=== PATIENT | male | born 1940 | race Caucasian/White ===

== ENCOUNTER 2018-10-10 08:56 | Day surgery (SDC) | payer OTHER, SELFPAY ==
[2018-10-10] VITALS (9 sets, daily range): BP systolic 92–128; BP diastolic 64–74; PULSE 79–87; RESP 8–18; TEMP 36.2–36.6; O2SAT 94–99; BMI 27.6
--- NOTE | 2018-10-10 | PATH_ITS ---
[facility] Accession Number: [id number] . 01 Material submitted: . ASCENDING COLON POLYP . 02 Diagnosis: Ascending Colon, Polyp: Colonic mucosa with no diagnostic abnormality, consistent with polypoid redundancy. Negative for serrated lesion, dysplasia or malignancy. Additional step sections examined. V/10/13/2018 . 02 Electronically signed: . Pacheco Bradford MD, PhD, Pathologist NPI- [id number] . 01 Gross description: . ASCENDING COLON POLYP: Received in formalin are 2 fragment(s) of bro, soft tissue measuring 0.5 x 0.2 x 0.1 cm to 0.2 x 0.2 x 0.1 cm submitted entirely in 1 cassette(s) /CKI /CKI . 02 Pathologist provided ICD-10: K63.5 . 02 CPT . 674000 Performed at: 01 [facility] [address] [facility] [place], [place], [place] [id number] MD Evan Woods MD Phone: [phone] Performed at: 02 [facility] [address] [place], [place] [id number] MD Kaycee Paulino MD Phone: [phone]
[2018-10-10] MEDS: SODIUM CHLORIDE 0.9% 1,000 ML 200 ML IV (09:23)
--- NOTE | 2018-10-10 10:51 | PM.HP.1 ---
History of Present Illness Date Patient Seen: 10/10/18 Time Patient Seen: 10:51 Chief complaint: colonoscopy [address]108 Narrative: The patient is a gentleman here for a screening colonoscopy. He was advised to have a repeat colonoscopy due to polyps. his last exam was about 3 years ago. Patient History Medical History Hypertension (Chronic) Surgical History Status post cataract extraction (Resolved) Family & Social History Social History: household members significant other Meds Home Medications Medication Instructions Recorded Confirmed Type aspirin 325 mg DAILY 10/10/18 10/10/18 History atorvastatin 20 mg DAILY 10/10/18 10/10/18 History metoprolol succinate 25 mg DAILY 10/10/18 10/10/18 History multivitamin 2 tab DAILY 10/10/18 10/10/18 History Allergies Allergy/AdvReac Type Severity Reaction Status Date / Time No Known Drug Allergies Allergy Verified 10/10/18 09:32 Review of Systems Review of Systems All systems reviewed & are unremarkable except as noted in HPI and below Cardiovascular Comments: History of paroxysmal atrial tachycardia and mitral valvular murmur Exam Vital Signs (past 8 hours): - 10/10/18 09:13 Temperature 97.2 F L Pulse Rate 84 Respiratory Rate 15 Blood Pressure 128/74 Pulse Oximetry 97 Oxygen Delivery Method Room Air Narrative Exam Narrative: Operative no apparent distress. Lungs are clear no rales or rhonchi heart regular rate and rhythm without murmur gallop. Abdomen is protuberant soft nontender without mass. Patient is alert and oriented x3. Assessment & Plan Plan: Assessment/Plan Narrative: Patient for screening exam. He apparently makes polyps rather quickly. He has had multiple exams in each time polyps were found. I have discussed the procedure and the rationale with the patient including risks of bleeding, perforation which would necessitate a major operation, failure to find remove all lesions and the potential to tattoo. They appeared to understand and wished to proceed.
--- NOTE | 2018-10-10 10:57 | PM.PREOP ---
Pre-operative Note Interval Note History & Physical reviewed/Exam performed by Physician: Yes Changes to H&P: No ASA Class (for procedural sedation): II
[2018-10-10] MEDS: fentaNYL 250 MCG/5 ML INJ IV (11:09)
[2018-10-10] MEDS: MIDAZOLAM 5 MG/5 ML VIAL IV (11:09)
--- NOTE | 2018-10-10 11:25 | PM.OP.ENDO ---
Operative Date/Time/Diagnoses Date of procedure: 10/10/18 Time of procedure: 11:25 Pre-op diagnosis: Screening exam. History of polyps. Post-op diagnosis: same (Sigmoid diverticulosis extensive. One small lesion in the ascending colon may just be scar.) Procedure & Clinicians Study performed: Colonoscopy with cold biopsy Same procedure as scheduled: Yes Indications: Screening. History of polyps. Surgeon: Jeffrey Roberts Procedure Notes SCOAP/Timeout: Performed Procedure in detail: The patient was placed in the left lateral decubitus position and underwent IV sedation directed by the surgeon consisting of fentanyl and Versed. Digital exam was unremarkable. No mass felt in the prostate. The prostate was mildly enlarged.. The scope was inserted and advanced through the rectum into the sigmoid, descending, transverse, and ascending colon. The patient was noted to have extensive sigmoid diverticulosis.. The cecum was reached identified by the ileocecal valve and the appendiceal opening. The scope was gradually brought out. A flat lesion that was small was found in the ascending colon. It could have been scar from a prior procedure. Biopsies were taken of it. It appeared to be removed.. The scope ultimately was retroflexed in the rectum. The appearance was normal. The scope was removed and the patient tolerated the procedure well Scope withdrawal time: Twelve min Sedation minutes: 25 Findings: diverticulosis (Sigmoid) and other findings (Flat lesion ascending colon) Specimen(s): other (Flat lesion) Complications: none Recommendations: Colonscopy in 5 years Follow up: as needed Disposition: same day surgery
== END 2018-10-10 12:34 | disposition home or self-care (01) ==
PROVIDERS: Family Provider Internal Medicine; PCP Internal Medicine; Visit Provider Specialist
PROC: 0DJD8ZZ Inspection of Lower Intestinal Tract, Via Natural or Artificial Opening Endoscopic (ICD-10-PCS; CPT 45378; principal; 2018-10-10 10:45)
DX: Z86.010 Personal history of colon polyps (principal); K57.30 Diverticulosis of large intestine without perforation or abscess without bleeding; I10 Essential (primary) hypertension; K63.5 Polyp of colon
CPT/HCPCS: 45380; 88305; 99152; 99153; J2250; J3010

== ENCOUNTER → 2019-07-15 08:43 | Outpatient (CLI) | payer OTHER, SELFPAY ==
[2019-07-15 09:58] LABS: Alanine Aminotransferase 24 IU/L (21-72); Albumin 4.3 g/dL (3.5-5.0); Albumin Globulin Ratio 1.5 (1.0-2.8); Alkaline Phosphatase 52 U/L (38-126); Aspartate Aminotransferase 42 IU/L (17-59); Blood Urea Nitrogen 18 mg/dL (9-20); Calcium 9.7 mg/dL (8.4-10.2); Carbon Dioxide 28 mmol/L (22-32); Chloride 104 mmol/L (98-107); Cholesterol 140 mg/dL (140-199); Estimated Glomerular Filt Rate 58.7 mL/min (>60); Globulin 2.9 g/dL (1.7-4.1); Glucose 129 mg/dL (80-110); HDL Cholesterol 37 mg/dL (40-60); HEMOLYSIS < 15 (0-50); LDL Cholesterol Calculated 88 mg/dL (<100); Potassium 4.2 mmol/L (3.4-5.1); Sodium 140 mmol/L (137-145); Total Protein 7.2 g/dL (6.3-8.2); Triglycerides 77 mg/dL (35-150)
== END ==
PROVIDERS: PCP Internal Medicine; Visit Provider Internal Medicine
DX: I10 Essential (primary) hypertension (principal); I48.0 Paroxysmal atrial fibrillation; I34.2 Nonrheumatic mitral (valve) stenosis; E78.5 Hyperlipidemia, unspecified
CPT/HCPCS: 36415; 80053; 80061

== ENCOUNTER → 2020-07-07 09:11 | Outpatient (CLI) | payer OTHER, SELFPAY ==
[2020-07-07 09:43] LABS: Add Manual Diff / Slide Review NO; Basophils Absolute Auto 0 /uL (0-100); Basophils Percent Auto 0.4 % (0-2); Eosinophils Absolute Auto 200 /uL (0-450); Hematocrit 45.4 % (41-53); Hemoglobin 15.6 g/dL (13.5-17.5); Lymphocytes Absolute Auto 1900 /uL (1100-4500); Lymphocytes Percent Auto 20.4 % (25-40); Mean Corpuscular HGB Conc 34.4 % (30-36); Mean Corpuscular Hemoglobin 33.2 PG (26-34); Mean Corpuscular Volume 96.5 fL (80-100); Monocytes Absolute Auto 800 /uL (0-900); Monocytes Percent Auto 8.7 % (3-14); Neutrophils Absolute Auto 6400 /uL (1500-7000); Neutrophils Percent Auto 68.5 % (50-75); Platelet Count 291 X10^3/uL (150-400); Red Cell Distribution Width 13.3 % (11.6-14.8); White Blood Cell Count 9.3 X10^3/uL (4.5-11.0)
[2020-07-07 10:10] LABS: Alanine Aminotransferase 20 IU/L (<50); Albumin 4.5 g/dL (3.5-5.0); Albumin Globulin Ratio 1.5 (1.0-2.8); Alkaline Phosphatase 64 U/L (38-126); Aspartate Aminotransferase 36 IU/L (17-59); BUN Creatinine Ratio 18.1 (6-22); Bilirubin Total 1.1 mg/dL (0.2-1.3); Blood Urea Nitrogen 21 mg/dL (9-20); Carbon Dioxide 31 mmol/L (22-32); Chloride 106 mmol/L (98-107); Cholesterol 150 mg/dL (140-199); Estimated Glomerular Filt Rate > 60.0 mL/min (>60); Glucose 111 mg/dL (80-110); HDL Cholesterol 44 mg/dL (40-60); HEMOLYSIS < 15 (0-50); LDL Cholesterol Calculated 92 mg/dL (<100); Potassium 4.8 mmol/L (3.4-5.1); Sodium 140 mmol/L (137-145); Total Protein 7.5 g/dL (6.3-8.2); Triglycerides 68 mg/dL (35-150)
== END ==
PROVIDERS: PCP Internal Medicine; Referring Provider Internal Medicine; Visit Provider Internal Medicine
DX: I10 Essential (primary) hypertension (principal); I48.0 Paroxysmal atrial fibrillation; E78.5 Hyperlipidemia, unspecified; B35.1 Tinea unguium
CPT/HCPCS: 36415; 80053; 80061; 85025

== ENCOUNTER → 2020-09-05 09:11 | Outpatient (CLI) | payer OTHER, SELFPAY ==
[2020-09-05 11:21] LABS: Alanine Aminotransferase 20 IU/L (<50); Aspartate Aminotransferase 34 IU/L (17-59)
== END ==
PROVIDERS: PCP Internal Medicine; Referring Provider Internal Medicine; Visit Provider Internal Medicine
DX: B35.1 Tinea unguium (principal)
CPT/HCPCS: 36415; 84450; 84460

== ENCOUNTER 2021-04-28 01:25 | Emergency (ER) | payer OTHER, SELFPAY ==
[2021-04-28] VITALS (15 sets, daily range): BP systolic 151–176; BP diastolic 70–95; PULSE 90–99; RESP 16–27; TEMP 36.6–37.4; O2SAT 90–99; BMI 28.8
--- NOTE | 2021-04-28 | DI.CT.S_ITS ---
PROCEDURE: CT STROKE INDICATIONS: STROKE TECHNIQUE: Noncontrast 4.5 mm thick angled axial sections acquired from the foramen magnum to the vertex, with coronal reformats. For radiation dose reduction, the following was used: automated exposure control, adjustment of mA and/or kV according to patient size. COMPARISON: None. FINDINGS: Image quality: Excellent. CSF spaces: Basal cisterns are patent. No extra-axial fluid collections. The ventricles are symmetric in size and shape. Brain: No intracranial bleeds or masses. There is cerebral volume loss for age, with resultant ventricular and sulcal prominence. There are periventricular and deep white matter chronic small vessel ischemic changes. There is intracranial internal carotid artery and vertebral artery atherosclerosis. Skull and face: Calvarium and visualized facial bones appear intact, without suspicious lesions. Sinuses: Visualized sinuses and mastoids are clear. IMPRESSION: No acute intracranial disease process. This study fulfills neurological imaging criteria for inclusion or exclusion of acute stroke therapies based on available published neurological guidelines. Dictated by: Jennifer Marcelino MD, PhD on 04/28/2021 at 7:04 Approved by: Jennifer Marcelino MD, PhD on 04/28/2021 at 7:05
--- NOTE | 2021-04-28 | DI.CT.S_ITS ---
PROCEDURE: CT ANGIO HEAD AND NECK INDICATIONS: STROKE TECHNIQUE: After the administration of intravenous contrast, 1 mm thick sections acquired from the aortic arch through the [place]. Post-contrast 4.5 mm thick sections then re-acquired from the foramen magnum to the vertex. 3-dimensional leorjbg-qqvwaoxzv-djrbjtxxft (MIP) and/or volume rendering reformats were acquired of the central intracranial vasculature and neck separately. COMPARISON: [facility], CT, CT STROKE, 04/28/2021, 1:20. FINDINGS: Image quality: Degraded by patient motion artifact. BRAIN: CSF spaces: Ventricles are normal in size and shape. Basal cisterns are patent. No extra-axial fluid collections. Brain: No midline shift. No intracranial bleeds or masses. Glez-white matter interface appears intact. Skull and face: Calvarium and facial bones appear intact, without suspicious lesions. Orbits appear normal. Sinuses: Sinuses and mastoids are clear. HEAD CT ANGIOGRAPHY: Anterior circulation: Intracranial internal carotid arteries are normal in flow. Atherosclerotic calcifications noted in the cavernous and clinoid segments of the internal carotid arteries bilaterally which moderate to severe stenosis of the right internal carotid artery and moderate stenosis of the left internal carotid artery. The flow within the paired anterior cerebral arteries is normal and symmetric. The flow within the middle cerebral arteries is normal and symmetric. The anterior communicating artery is seen. No aneurysms are seen. Posterior circulation: Atherosclerotic calcification noted in the proximal V4 segment of the left vertebral artery which causes fskj-uh-yavoxazw focal short segment stenosis. Patient is left vertebral artery dominant. Focal, short segment, mild narrowing of the mid aspect of the basilar artery. Flow within the posterior cerebral arteries is normal and symmetric. No aneurysms are seen. Dural sinuses demonstrate normal postcontrast enhancement. NECK CT ANGIOGRAPHY: Carotid system: The great vessels demonstrate a conventional anatomy as they arise from the aortic arch. The origins of the common carotid arteries appear patent. The common carotid arteries demonstrate normal caliber and courses. Atherosclerotic plaque noted the origins of the internal carotid arteries bilaterally which causes less than 50% stenosis of the vessels. Posterior circulation: Soft atherosclerotic plaque noted in the origin of the left vertebral artery which causes moderate stenosis. Origin of the right vertebral artery is fully patent. Patient is left vertebral artery dominant. The right vertebral artery is congenitally hypoplastic. The more superior extracranial portions of both vertebral arteries also demonstrate normal courses and calibers. They join to form a normal appearing basilar artery. Soft tissues: Visualized neck soft tissues demonstrate no suspicious abnormalities. Bones: No suspicious bony lesions. Spine degenerative disc disease and facet arthropathy. Visualized cervical spine appears normally aligned. IMPRESSION: 1. No acute intracranial disease process. 2. 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 3. Moderate stenosis of the clinoid segment of the left internal carotid artery. 4. Less than 50% stenosis of the origins of internal carotid arteries bilaterally. 5. Moderate, short segment stenosis of the origin of the left vertebral artery and the proximal V4 segment of the left vertebral artery. 6. No large vessel occlusion, vascular dissection or aneurysm. Any quantitative measurements of stenosis were performed using NASCET criteria. Dictated by: Jennifer Marcelino MD, PhD on 04/28/2021 at 8:10 Approved by: Jennifer Marcelino MD, PhD on 04/28/2021 at 8:18
[2021-04-28 01:42] LABS: Add Manual Diff / Slide Review NO; Basophils Absolute Auto 100 /uL (0-100); Basophils Percent Auto 0.7 % (0-2); Eosinophils Absolute Auto 200 /uL (0-450); Eosinophils Percent Auto 2.7 % (2-4); Hematocrit 44.5 % (41-53); Hemoglobin 15.1 g/dL (13.5-17.5); INR 1.1 (0.9-1.3); Lymphocytes Absolute Auto 2700 /uL (1100-4500); Lymphocytes Percent Auto 32.2 % (25-40); Mean Corpuscular HGB Conc 33.9 % (30-36); Mean Corpuscular Hemoglobin 32.8 PG (26-34); Mean Corpuscular Volume 96.8 fL (80-100); Monocytes Absolute Auto 700 /uL (0-900); Monocytes Percent Auto 8.3 % (3-14); Neutrophils Absolute Auto 4600 /uL (1500-7000); Neutrophils Percent Auto 56.1 % (50-75); PTT Partial Thromboplastin Tim 36 SECONDS (26.4-36.2); Platelet Count 263 X10^3/uL (150-400); Prothrombin Time 11.8 SECONDS (10.1-12.7); Red Cell Distribution Width 13.9 % (11.6-14.8); White Blood Cell Count 8.2 X10^3/uL (4.5-11.0)
[2021-04-28 01:45] LABS: BUN Creatinine Ratio 16.5 (6-22); Blood Urea Nitrogen 22 mg/dL (9-20); Calcium 9.9 mg/dL (8.4-10.2); Carbon Dioxide 28 mmol/L (22-32); Chloride 106 mmol/L (98-107); Estimated Glomerular Filt Rate 51.9 mL/min (>60); Glucose 127 mg/dL (80-110); HEMOLYSIS 16 (0-50); Potassium 4.1 mmol/L (3.4-5.1); Sodium 141 mmol/L (137-145)
--- NOTE | 2021-04-28 01:45 | ED.NEUROSD ---
HPI - Neuro Symptoms/Deficit General Chief Complaint: Neuro Symptoms/Deficit Stated Complaint: Stroke Time Seen by Provider: 04/28/21 01:25 History of Present Illness HPI Narrative: 81-year-old male with history of AFib (no anticoagulation), hypertension and hyperlipidemia presents by EMS for evaluation of altered mental status as a code stroke. Last known normal was 2300 when he went to bed, complaining only of feeling a bit tired. He woke at 0030 asking his for assistance. She found him to be confused, unable to speak and called EMS. They arrived here or taken directly to CT scan as a code stroke. Patient has had no recent trauma, history of stroke or any bleeding complications. He has had no surgeries and as stated takes no blood thinners. Related Data Home Medications Medication Instructions Recorded Confirmed aspirin 325 mg DAILY 10/10/18 10/10/18 atorvastatin 20 mg DAILY 10/10/18 10/10/18 metoprolol succinate 25 mg DAILY 10/10/18 10/10/18 multivitamin 2 tab DAILY 10/10/18 10/10/18 Allergies Allergy/AdvReac Type Severity Reaction Status Date / Time No Known Drug Allergies Allergy Verified 10/10/18 09:32 Review of Systems Review of Systems ROS Unobtainable: Unobtainable due to mental status/LOC Patient History Medical History Hypertension Surgical History Status post cataract extraction Social History household members: significant other Smoking Status: Never smoker Exam Narrative Exam Narrative: GENERAL: [81] year old patient appears stated age. Well-developed patient, in obvious significant distress, no airway compromise. HEAD: Atraumatic. Normocephalic. EYES: Pupils equal round and reactive. Extraocular motions intact. No scleral icterus. No injection or drainage. Left gaze deviation ENT: Nose without bleeding, purulent drainage. Throat without erythema, tonsillar hypertrophy or exudate. Airway patent. NECK: Trachea midline. Non tender CARDIOVASCULAR: Regular rate and rhythm without murmurs, gallops, or rubs. RESPIRATORY: Clear to auscultation. Breath sounds equal bilaterally. No wheezes, rales, or rhonchi. GASTROINTESTINAL: Abdomen soft, non-tender, nondistended. EXTREMITIES: No edema or joint tenderness. BACK: Nontender without deformity or crepitance. No flank tenderness. SKIN: No rash or erythema of visible areas Initial Vital Signs Initial Vital Signs: Vital Signs Pulse Rate 90 04/28/21 01:44 Respiratory Rate 17 04/28/21 01:44 Pulse Oximetry 96 04/28/21 01:44 Scores NIH Stroke Scale Level of Conciousness: Not alert, requires repeated stimulation to attend, or is obtunded Ask month/age: Answers neither question correctly, aphasic, stuporous, coma Open/close eyes, close hand: Performs one task correctly Best gaze horizontal: Partial gaze palsy, can be overcome by finger tracking, head turning Visual brownlee: No visual loss Facial palsy: Partial paralysis, total or near total paralysis of lower face Left arm drift: No drift for full 10 sec Right arm drift: No effort against gravity Left leg drift: No drift for full 5 sec Right leg drift: Some effort against gravity, cannot maintain, drifts down to bed Limb ataxia: Absent Sensory on face/arms/legs: Mild to moderate sensory loss, can tell touch Best language: Severe aphasia, not much is understood, fragmented Dysarthria: Severe, unintelligible Extinction or inattention: Visual, tactile, auditory, spacial or personal inattention to stimuli Total NIH Stroke scale score: 19 Course Course Course Narrative: tPA (Tissue Plasminogen Activator) Dosing for Stroke Calculator from [employer] on 04/28/2021 All calculations should be rechecked by clinician prior to use RESULT SUMMARY: 8.0 mg Bolus dose, given IV over 1 min 71.6 mg Infusion, given IV over 60 mins 20.4 mg Waste, to be discarded INPUTS: Weight ?> 88.4 kg tPA Contraindications for Ischemic Stroke from [employer] on 04/28/2021 All calculations should be rechecked by clinician prior to use RESULT SUMMARY: Patient eligible for tPA. INPUTS: Age ?20 ?> 1 = Yes Clinical diagnosis of ischemic stroke causing neurological deficit ?> 1 = Yes Time of symptom onset ?> 1 = Yes Intracranial hemorrhage on CT ?> 0 = No Clinical presentation suggests subarachnoid hemorrhage ?> 0 = No Neurosurgery, head trauma, or stroke in past 3 months ?> 0 = No Uncontrolled hypertension (>185 mmHg SBP or >110 mmHg DBP) ?> 0 = No History of intracranial hemorrhage ?> 0 = No Known intracranial arteriovenous malformation, neoplasm, or aneurysm ?> 0 = No Active internal bleeding ?> 0 = No Suspected/confirmed endocarditis ?> 0 = No Known bleeding diathesis ?> 0 = No Abnormal blood glucose ( ?> 0 = No Only minor or rapidly improving stroke symptoms ?> 0 = No Major surgery or serious non-head trauma in the previous 14 days ?> 0 = No History of gastrointestinal or urinary tract hemorrhage within 21 days ?> 0 = No Seizure at stroke onset ?> 0 = No Recent arterial puncture at a noncompressible site ?> 0 = No Recent lumbar puncture ?> 0 = No Post myocardial infarction pericarditis ?> 0 = No ?> 0 = No Age >80 years ?> 0 = No History of prior stroke and diabetes ?> 0 = No Any active anticoagulant use (even with INR ?> 0 = No NIHSS >25 ?> 0 = No CT shows multilobar infarction (hypodensity >1/3 cerebral hemisphere) ?> 0 = No Orders Ordered: ED Orders 04/28/[address] angio head and neck Stat 04/28/21 01:30 Basic Metabolic Panel Stat Complete Blood Count AUTO DIFF Stat Ethanol (ETOH) Stat Partial Thromboplastin Time Stat Prothrombin Time INR Stat Troponin & CK Cardiac Panel Stat 04/28/21 01:37 Urine Drug Screen, Rapid Stat EKG-12 Lead Stat 04/28/21 02:55 COVID19 - ADMIT ([employer] swab/PCR) Stat Discontinued Medications Alteplase, Recombinant (Alteplase 100 Mg Vial) 8 mg 0.09 mg/kg (8 mg) IV NOW ONE Stop: 04/28/21 01:57 Last Admin: 04/28/21 02:15 Dose: 8 mg Documented by: SHARONDA Alteplase, Recombinant (Alteplase 100 Mg Vial) 71.6 mg 0.81 mg/kg (71.6 mg) IV NOW ONE Stop: 04/28/21 01:57 Last Admin: 04/28/21 02:16 Dose: 71.6 mg Documented by: SHARONDA Sodium Chloride (Normal Saline 0.9%) 1,000 mls @ 150 mls/hr IV CONT EDGAR Last Infusion: 04/28/21 05:54 Dose: 150 mls/hr Documented by: Admin: 04/28/21 01:46 Dose: 150 mls/hr Documented by: SHARONDA Reevaluation(s) Reevaluation #1: [id number] - patient both eyes open, now has speech which can be understood Consultations Consultation #1: immediately upon return to the ED from CT images were pushed to Telestroke and they were paged. Dr. Herrera and I have discussed the case and he will review on telestroke monitor We share the opinion that patient is a tPA candidate. Patient's domestic partner has been consented and after discussion of risks and benefits she also agrees. TPA ordered, bolus given 0215 immediately followed by drip Consultation #2: Dr. Herrera (Telestroke) has found a bed at [facility] and has consulted directly with their Neuro ICU physician (Dr. Bowden) who accepts patient. Bed is ready. made aware. [facility] called Vital Signs Vital signs: Vital Signs - 8 hr 04/28/21 01:44 04/28/21 01:47 04/28/21 01:55 Temperature 99.3 F Pulse Rate 90 90 90 Respiratory Rate 17 16 16 Blood Pressure 173/89 H 151/70 H Pulse Oximetry 96 95 95 04/28/21 02:00 04/28/21 02:02 04/28/21 02:15 Temperature Pulse Rate 93 H 92 H 97 H Respiratory Rate 18 18 19 Blood Pressure 161/77 H 160/78 H 162/80 H Pulse Oximetry 95 95 04/28/21 02:30 04/28/21 02:45 04/28/21 03:00 Temperature 97.9 F Pulse Rate 99 H 98 H 96 H Respiratory Rate 27 H 24 19 Blood Pressure 159/86 H 160/91 H 157/88 H Pulse Oximetry 96 99 96 04/28/21 03:15 04/28/21 03:30 04/28/21 03:45 Temperature Pulse Rate 96 H 94 H 96 H Respiratory Rate 19 22 21 Blood Pressure 152/88 H 176/95 H 159/88 H Pulse Oximetry 95 93 90 L 04/28/21 04:00 04/28/21 04:15 04/28/21 04:30 Temperature Pulse Rate 93 H 92 H 93 H Respiratory Rate 20 16 22 Blood Pressure 159/89 H 160/86 H 161/92 H Pulse Oximetry 90 L 93 96 MDM - Neuro Symptoms/Deficit Lab Data Result diagrams: 04/28/21 01:30 04/28/21 01:30 Labs: Lab Results 04/28/21 04/28/21 04/28/21 Range/Units 01:30 01:30 01:30 WBC 8.2 (4.5-11.0) X10^3/uL RBC 4.60 (4.5-5.9) X10^6/uL Hgb 15.1 (13.5-17.5) g/dL Hct 44.5 (41-53) % MCV 96.8 (80-100) fL MCH 32.8 (26-34) PG MCHC 33.9 (30-36) % RDW 13.9 (11.6-14.8) % Plt Count 263 (150-400) X10^3/uL Neut % (Auto) 56.1 (50-75) % Lymph % (Auto) 32.2 (25-40) % [place] % (Auto) 8.3 (3-14) % Eos % (Auto) 2.7 (2-4) % Baso % (Auto) 0.7 (0-2) % Neut # (Auto) 4600 (6679-6104) /uL Lymph # (Auto) 2700 (6039-4702) /uL [place] # (Auto) 700 (0-900) /uL Eos # (Auto) 200 (0-450) /uL Baso # (Auto) 100 (0-100) /uL PT 11.8 (10.1-12.7) SECONDS INR 1.1 (0.9-1.3) APTT 36 (26.4-36.2) SECONDS Sodium 141 (137-145) mmol/L Potassium 4.1 (3.4-5.1) mmol/L Chloride 106 (98-107) mmol/L Carbon Dioxide 28 (22-32) mmol/L BUN 22 H (9-20) mg/dL Creatinine 1.33 H (0.66-1.25) mg/dL Estimated GFR 51.9 L (>60) mL/min BUN/Creatinine Ratio 16.5 (6-22) Glucose 127 H (80-110) mg/dL Calcium 9.9 (8.4-10.2) mg/dL Total Creatine Kinase 152 (55-170) U/L CK-MB (CK-2) 2.81 H (<2.37) ng/mL CK-MB (CK-2) Rel Index 1.8 (1.5-5.0) % Troponin I 0.096 H (0.01-0.034) ng/mL Ethyl Alcohol < 10 ( - 10) mg/dL SARS-CoV-2 (PCR) (Negative) 04/28/21 Range/Units 02:55 WBC (4.5-11.0) X10^3/uL RBC (4.5-5.9) X10^6/uL Hgb (13.5-17.5) g/dL Hct (41-53) % MCV (80-100) fL MCH (26-34) PG MCHC (30-36) % RDW (11.6-14.8) % Plt Count (150-400) X10^3/uL Neut % (Auto) (50-75) % Lymph % (Auto) (25-40) % [place] % (Auto) (3-14) % Eos % (Auto) (2-4) % Baso % (Auto) (0-2) % Neut # (Auto) (5855-4873) /uL Lymph # (Auto) (8308-6020) /uL [place] # (Auto) (0-900) /uL Eos # (Auto) (0-450) /uL Baso # (Auto) (0-100) /uL PT (10.1-12.7) SECONDS INR (0.9-1.3) APTT (26.4-36.2) SECONDS Sodium (137-145) mmol/L Potassium (3.4-5.1) mmol/L Chloride (98-107) mmol/L Carbon Dioxide (22-32) mmol/L BUN (9-20) mg/dL Creatinine (0.66-1.25) mg/dL Estimated GFR (>60) mL/min BUN/Creatinine Ratio (6-22) Glucose (80-110) mg/dL Calcium (8.4-10.2) mg/dL Total Creatine Kinase (55-170) U/L CK-MB (CK-2) (<2.37) ng/mL CK-MB (CK-2) Rel Index (1.5-5.0) % Troponin I (0.01-0.034) ng/mL Ethyl Alcohol ( - 10) mg/dL SARS-CoV-2 (PCR) Negative (Negative) Imaging Data CT scan - head: Attestation: I personally reviewed and interpreted this imaging study as follows: My Impression: no bleed Radiologist's Impression: Generalized involutional changes noted, consistent with age. Small lacunar infarcts of the basal ganglia bilaterally are old. No hemorrhage or mass effect Also reviewed by Dr. Herrera with tele stroke who agrees there is no contraindication to tPA CTA Head/Neck: Radiologist's Impression: Atherosclerotic changes of the intracranial and extracranial vessels. There appears likely to be at least 50% diameter stenosis of the distal cavernous ICA on the right, but no critical stenosis or vessel occlusion is demonstrated Critical Care Time Critical Care Time Critical Care Time: Yes Total Critical Care Time: 35 Attestation: I was immediately available in the department for consultation. This documentation has been reviewed and I agree with assessment and plan. Supervised by Juarez Guillen, Discharge Plan Departure Patient Disposition: [facility] Clinical Impression: Cerebrovascular accident Qualifiers: CVA mechanism: unspecified Qualified Code(s): I63.9 - Cerebral infarction, unspecified Prescriptions: No Action atorvastatin 20 mg 20 mg DAILY RF: 0 metoprolol succinate 25 mg 25 mg DAILY RF: 0 aspirin 325 mg 325 mg DAILY RF: 0 multivitamin 2 tab DAILY RF: 0 Referrals: Scar Navarro MD [Primary Care Provider] -
[2021-04-28] MEDS: SODIUM CHLORIDE 0.9% 1,000 ML 150 ML IV (01:46)
[2021-04-28 01:59] LABS: Creatine Kinase 152 U/L (55-170); Ethanol (ETOH) < 10 mg/dL
[2021-04-28 02:11] LABS: Troponin I 0.096 ng/mL (0.01-0.034)
[2021-04-28 02:13] LABS: CKMB % Relative Index 1.8 % (1.5-5.0); Creatine Kinase MB 2.81 ng/mL (<2.37)
[2021-04-28] MEDS: ALTEPLASE 100 MG VIAL 8 MG IV (02:15)
[2021-04-28] MEDS: ALTEPLASE 100 MG VIAL 71.6 MG IV (02:16)
[2021-04-28 03:55] LABS: COVID19 - ADMIT (NP swab/PCR) Negative (Negative)
--- NOTE | 2021-04-28 05:55 | PC.NURSE ---
see paper chart for code stroke forms and neuro checks.
== END 2021-04-28 05:10 | disposition short-term general hospital (02) ==
PROVIDERS: Emergency Provider Emergency Medicine; PCP Internal Medicine
DX: I63.9 Cerebral infarction, unspecified (principal); Z20.822 Contact with and (suspected) exposure to COVID-19
CPT/HCPCS: 70450; 70496; 70498; 80048; 80320; 82550; 82553; 84484; 85025; 85610; 85730; 87635; 93005; 96361; 96374; 99284; 99291; C9803; J2997; Q9967

== ENCOUNTER 2021-05-02 16:58 | Emergency (ER) | payer OTHER, SELFPAY ==
[2021-05-02 17:02] VITALS: BP 164/75; PULSE 81; RESP 20; TEMP 36.7; O2SAT 95
--- NOTE | 2021-05-02 17:06 | DI.CT.S_ITS ---
PROCEDURE: CT HEAD/BRAIN WO CON INDICATIONS: recent CVA w/ TPA, hit head, neuro intact. TECHNIQUE: Noncontrast 4.5 mm thick angled axial sections acquired from the foramen magnum to the vertex, with coronal and sagittal reformats. For radiation dose reduction, the following was used: automated exposure control, adjustment of mA and/or kV according to patient size. COMPARISON: [facility], CT, CT STROKE, 04/28/2021, 1:20. [facility], CT, CT ANGIO HEAD AND NECK, 04/28/2021, 1:20. FINDINGS: Image quality: Excellent. CSF spaces: Basal cisterns are patent. No extra-axial fluid collections. The ventricles are symmetric in size and shape. Brain: No intracranial bleeds or masses. There is cerebral volume loss for age, with resultant ventricular and sulcal prominence. There are periventricular and deep white matter chronic small vessel ischemic changes. There is intracranial internal carotid artery atherosclerosis. Skull and face: Calvarium and visualized facial bones appear intact, without suspicious lesions. Sinuses: Visualized sinuses and mastoids are clear. IMPRESSION: No acute intracranial hemorrhage is seen. No acute intracranial process is seen. If there is strong clinical suspicion for an acute stroke, please consider a brain MRI for further evaluation, as it is more sensitive (assuming that there is no contraindication to MRI). Dictated by: Derrick Osorio M.D. on 05/02/2021 at 16:22 Approved by: Derrick Osorio M.D. on 05/02/2021 at 16:24
--- NOTE | 2021-05-02 17:38 | ED.GENADULT ---
HPI - General Adult General Chief complaint: Trauma Stated complaint: hit head,medications warns to be seen,recent strok Time Seen by Provider: 05/02/21 17:17 Source: patient Mode of arrival: Ambulatory History of Present Illness HPI narrative: Patient is a 81-year-old male. Is on aspirin and Plavix. Patient is less than 1 week after being seen here in this emergency department for any acute ischemic stroke. He received tPA. His transfer to stroke center. Was subsequently discharged a couple days later. He was told that if he ever hit his head he need to come in to be evaluated. He was trying to get something into his car when he hit his head on a plastic piece on the outside of the car. There was no loss of consciousness. He did not break the skin on his head. There was no bleeding. He has no headache. Patient has no symptoms. He is here solely because he was told to come in if he ever hit his head. Related Data Home Medications Medication Instructions Recorded Confirmed aspirin 325 mg DAILY 10/10/18 10/10/18 atorvastatin 20 mg DAILY 10/10/18 10/10/18 metoprolol succinate 25 mg DAILY 10/10/18 10/10/18 multivitamin 2 tab DAILY 10/10/18 10/10/18 Allergies Allergy/AdvReac Type Severity Reaction Status Date / Time No Known Drug Allergies Allergy Verified 10/10/18 09:32 Review of Systems Constitutional Constitutional: Reports system reviewed and no additional complaints, except as documented Eyes Eyes: Reports system reviewed and no additional complaints, except as documented Cardiovascular Cardiovascular: Reports system reviewed and no additional complaints, except as documented Respiratory Respiratory: Reports system reviewed and no additional complaints, except as documented Gastrointestinal Gastrointestinal: Reports system reviewed and no additional complaints, except as documented Genitourinary Genitourinary: Reports system reviewed and no additional complaints, except as documented Musculoskeletal Musculoskeletal: Reports system reviewed and no additional complaints, except as documented Integumentary/Breasts Skin/Breast: Reports system reviewed and no additional complaints, except as documented Neurologic Neurologic: Reports system reviewed and no additional complaints, except as documented Hematologic/Lymphatic On Anticoagulants: Yes (Aspirin Plavix) Patient History Medical History Hypertension Surgical History Status post cataract extraction Social History household members: significant other Smoking Status: Never smoker Smoking Status: Never smoker alcohol intake frequency: 0-2 drinks per day Alcohol type: wine Substance Use Type: does not use Exam Initial Vital Signs Initial Vital Signs: Vital Signs Temperature 98.1 F 05/02/21 17:02 Pulse Rate 81 05/02/21 17:02 Respiratory Rate 20 05/02/21 17:02 Blood Pressure 164/75 H 05/02/21 17:02 Pulse Oximetry 95 05/02/21 17:02 Const General: cooperative and healthy appearing HENMT Head: normal to inspection and normocephalic Resp Effort & Inspection: normal respiratory effort Cardio Palpation: normal PMI Skin General: no rashes or lesions noted Extrem General: normal to inspection Psych Appearance: grossly normal and well kempt Scores GCS [place] coma scale eye opening: Spontaneous [place] coma scale verbal response: Orientated [place] coma scale motor response: Obey commands [place] coma scale total score: 15 Course Orders Ordered: ED Orders 05/02/21 17:06 CT head/brain wo con Stat Vital Signs Vital signs: Vital Signs - 8 hr 05/02/21 17:02 Temperature 98.1 F Pulse Rate 81 Respiratory Rate 20 Blood Pressure 164/75 H Pulse Oximetry 95 Medical Decision Making Imaging Data CT scan - head: Radiologist's Impression: [address] [id number] Scan ReportSigned Patient: Steve Zafar TMR#: [id number]: 2Acct:[id number]/Sex: 81 / MDate of Service: 05/02/21Loc: EDAccession Number: [id number] Procedure: CT head/brain wo con Ordering Provider: Ramon Armas D.O. PROCEDURE: CT HEAD/BRAIN WO CON INDICATIONS: recent CVA w/ TPA, hit head, neuro intact. TECHNIQUE: Noncontrast 4.5 mm thick angled axial sections acquired from the foramen magnum to the vertex, with coronal and sagittal reformats. For radiation dose reduction, the following was used: automated exposure control, adjustment of mA and/or kV according to patient size. COMPARISON: [facility], CT, CT STROKE, 04/28/2021, 1:20. [facility], CT, CT ANGIO HEAD AND NECK, 04/28/2021, 1:20. FINDINGS: Image quality: Excellent. CSF spaces: Basal cisterns are patent. No extra-axial fluid collections. The ventricles are symmetric in size and shape. Brain: No intracranial bleeds or masses. There is cerebral volume loss for age, with resultant ventricular and sulcal prominence. There are periventricular and deep white matter chronic small vessel ischemic changes. There is intracranial internal carotid artery atherosclerosis. Skull and face: Calvarium and visualized facial bones appear intact, without suspicious lesions. Sinuses: Visualized sinuses and mastoids are clear. IMPRESSION: No acute intracranial hemorrhage is seen. No acute intracranial process is seen. If there is strong clinical suspicion for an acute stroke, please consider a brain MRI for further evaluation, as it is more sensitive (assuming that there is no contraindication to MRI). Dictated by: Derrick Osorio M.D. on 05/02/2021 at 16:22 Approved by: Derrick Osorio M.D. on 05/02/2021 at 16:24 MDM Narrative Medical decision making narrative: Patient has a normal neurologic exam. He has no abrasions on the scalp. He is alert oriented x3. GCS of 15. Head CT shows no signs of head bleed or skull fracture. I did inform the patient of this. No further workup needed the emergency department. He was given return precautions. He expressed understanding agreement. Discharge Plan Departure Patient Disposition: Home Clinical Impression: Closed head injury Instructions: Closed Head Injury Activity Restrictions/Additional Instructions: Your head CT is unremarkable. There is no signs of any bleed. No signs of any skull fracture. Keep all of your scheduled follow-up medical appointments. Return to the emergency department for any new or worsening symptoms Prescriptions: No Action atorvastatin 20 mg 20 mg DAILY RF: 0 metoprolol succinate 25 mg 25 mg DAILY RF: 0 aspirin 325 mg 325 mg DAILY RF: 0 multivitamin 2 tab DAILY RF: 0 Referrals: Scar Navarro MD [Primary Care Provider] -
== END 2021-05-02 17:59 | disposition home or self-care (01) ==
PROVIDERS: Emergency Provider Emergency Medicine; PCP Internal Medicine
DX: S09.90XA Unspecified injury of head, initial encounter (principal); W22.8XXA Striking against or struck by other objects, initial encounter
CPT/HCPCS: 70450; 99284

== ENCOUNTER → 2021-11-06 16:44 | Outpatient (CLI) | payer OTHER, SELFPAY ==
--- NOTE | 2021-11-06 16:54 | DI.RAD.S_ITS ---
PROCEDURE: XR HIP W PEL IF DONE LT 2V INDICATIONS: PAIN LEFT HIP TECHNIQUE: An AP view of the pelvis and a frogleg lateral view of the left hip acquired COMPARISON: None. FINDINGS: Bones: No fractures or dislocations. No suspicious bony lesions. The visualized pelvic ring appears intact. Bilateral hip arthritic change, left greater than right. On the left there is moderately severe joint space loss without significant osteophytosis. Soft tissues: No suspicious soft tissue calcifications or masses. IMPRESSION: Bilateral hip arthritic change, left greater than right. No evidence acute bony abnormality of the pelvis and left hip. If clinical suspicion and/or symptoms persist, further assessment with repeat plain films, or advanced imaging (e.g., CT, MRI, or bone scan) may be helpful for further assessment. Dictated by: Ivan Murphy M.D. on 11/06/2021 at 20:19 Approved by: Ivan Murphy M.D. on 11/06/2021 at 20:20
== END ==
PROVIDERS: PCP Internal Medicine; Referring Provider Internal Medicine; Visit Provider Internal Medicine
DX: M25.552 Pain in left hip (principal)
CPT/HCPCS: 73502

== ENCOUNTER → 2022-05-23 15:47 | Outpatient (CLI) | payer OTHER, SELFPAY ==
--- NOTE | 2022-05-23 15:51 | DI.RAD.S_ITS ---
PROCEDURE: XR FOOT LT MIN 3V INDICATIONS: Left Foot pain TECHNIQUE: 3 views of the foot were acquired. COMPARISON: None. FINDINGS: Bones: No fractures or dislocations. No suspicious bony lesions. Moderate 1st tarsometatarsal joint space narrowing Soft tissues: No tibiotalar joint effusion. Achilles tendon appears normal. Small vessel atherosclerotic vascular calcification noted IMPRESSION: First tarsometatarsal osteoarthritis Approved by: Gabino Huang M.D. on 05/23/2022 at 18:33
== END ==
PROVIDERS: PCP Internal Medicine; Referring Provider Physician Assistant; Visit Provider Physician Assistant
DX: M79.672 Pain in left foot (principal); M19.072 Primary osteoarthritis, left ankle and foot
CPT/HCPCS: 73630

== ENCOUNTER 2022-12-20 05:25 | Inpatient (IN) | payer OTHER, SELFPAY ==
[2022-12-20] VITALS (188 sets, daily range): BP systolic 65–141; BP diastolic 46–85; PULSE 103–162; RESP 8–42; TEMP 36.6–37; O2SAT 88–100; BMI 26.6; BMI 28.6
--- NOTE | 2022-12-20 05:35 | ED.GENADULT ---
HPI - General Adult General Chief complaint: Arrhythmia/Palpitations Stated complaint: AFIB Time Seen by Provider: 12/20/22 05:28 History of Present Illness HPI narrative: 82-year-old male nonsmoker with history of paroxysmal AFib on Coumadin, prior CVA presents with his in the chief complaint of a sudden onset rapid heart rate that woke him from sleep at about 4:00 a.m.. He felt palpitations, some shortness of breath and perhaps a brief episode of pressure, a home monitor noted his heart rate to be irregular and in the 150s. His last episode of AFib requiring cardioversion was 2 years ago. He denies any change in medications or missed doses. He states the only thing different was they went out with friends last night and he had a few alcoholic beverages wishes not normal for him. He denies fever, chills nor nausea or vomiting. Related Data Home Medications Medication Instructions Recorded Confirmed aspirin 325 mg DAILY 10/10/18 10/10/18 atorvastatin 20 mg DAILY 10/10/18 10/10/18 metoprolol succinate 25 mg DAILY 10/10/18 10/10/18 multivitamin 2 tab DAILY 10/10/18 10/10/18 Allergies Allergy/AdvReac Type Severity Reaction Status Date / Time No Known Drug Allergies Allergy Verified 10/10/18 09:32 Review of Systems Review of Systems Narrative: GENERAL: Denies chills, fatigue, malaise, fever, sweats. HEENT: Denies sinus pain, ear pain, sore throat, difficulty swallowing, dizziness. RESPIRATORY: See HPI CARDIOVASCULAR: See HPI GASTROINTESTINAL: Denies nausea, vomiting, abdominal pain, diarrhea, constipation, melena. : Denies dysuria, frequency, incontinence, hematuria, urinary retention. MUSCULOSKELETAL: denies weakness, joint pain, or bony pain SKIN: Denies rash, skin lesions, or other NEUROLOGIC: Denies weakness, headache, numbness, change in speech, confusion, seizures, incoordination. PSYCHIATRIC: No concerning psychosocial issues. 12 point review of systems is negative except for those stated above Patient History Medical History Hypertension Surgical History Status post cataract extraction Social History household members: significant other Smoking Status: Never smoker Smoking Status: Never smoker alcohol intake frequency: 0-2 drinks per day Alcohol type: wine Substance Use Type: does not use Exam Narrative Exam Narrative: GENERAL: [82] year old patient appears stated age. Well-developed patient, in mild distress. HEAD: Atraumatic. Normocephalic. EYES: Pupils equal round and reactive. Extraocular motions intact. No scleral icterus. No injection or drainage. ENT: Nose without bleeding, purulent drainage. Throat without erythema, tonsillar hypertrophy or exudate. Airway patent. NECK: Trachea midline. Non tender CARDIOVASCULAR: Tachycardic and irregular rhythm without murmurs, gallops, or rubs. RESPIRATORY: Clear to auscultation. Breath sounds equal bilaterally. No wheezes, rales, or rhonchi. GASTROINTESTINAL: Abdomen soft, non-tender, nondistended. EXTREMITIES: No edema or joint tenderness. BACK: Nontender without deformity or crepitance. No flank tenderness. NEURO: AOx3. SKIN: No rash or erythema of visible areas Initial Vital Signs Initial Vital Signs: Vital Signs Temperature 97.8 F 12/20/22 05:30 Pulse Rate 158 H 12/20/22 05:30 Respiratory Rate 22 12/20/22 05:30 Blood Pressure 141/72 H 12/20/22 05:30 Pulse Oximetry 98 12/20/22 05:30 Oxygen Delivery Method Room Air 12/20/22 05:30 Procedures Cardioversion Consent Signed: Yes Indication: Rapid AFib Stability: Stable Joules used: 120, 150 and 200 Cardiac rhythm post-cardioversion: Rapid AFib Procedural Sedation Consent signed: Yes Time out performed: Yes Indication: cardioversion ASA Class: III Mallampati Airway Classification: Class II Preparation: property assessment monitor applied, pulse oximeter, capnometry used, supplemental O2 applied, suction/airway equipment at bedside and IV secured IV Propofol dose (mg): 70 Intraservice time/total sedation time (min): 10 ED Sedation Level: Moderate (Concious) Patient Tolerated Procedure: Well Complications: none Additional Comments: unsuccessful cardioversion Course Orders Ordered: ED Orders 12/20/22 05:40 Complete Blood Count AUTO DIFF Stat Comprehensive Metabolic Panel Stat Magnesium Stat Prothrombin Time INR Stat Troponin & CK Cardiac Panel Stat 12/20/22 05:45 EKG-12 Lead Stat 12/20/22 06:46 COVID19 -Nasal RAPID Stat DILTIAZEM (Diltiazem 125 Mg/125 Ml-D5w) 125 mg in 125 mls @ 5 mls/hr IV TITRATE EDGAR; Protocol Last Titration: 12/20/22 06:40 Dose: 0 mg/hr, 0 mls/hr Documented By: Admin: 12/20/22 06:35 Dose: 5 mg/hr, 5 mls/hr Documented By: MACKENZIE Discontinued Medications Diltiazem HCl (Diltiazem 5 Mg/Ml Sdv) 10 mg IV NOW ONE Stop: 12/20/22 06:13 Last Admin: 12/20/22 06:30 Dose: 10 mg Documented By: MACKENZIE Propofol (Propofol 200 Mg/20 Ml Vial) 200 mg IV NOW ONE Stop: 12/20/22 05:45 Last Admin: 12/20/22 06:09 Dose: 80 mg Documented By: MACKENZIE Vital Signs Vital signs: Vital Signs - 8 hr 12/20/22 05:30 12/20/22 05:57 12/20/22 05:35 Temperature 97.8 F Pulse Rate 158 H 158 H 153 H Respiratory Rate 22 12 28 H Blood Pressure 141/72 H 99/56 L Pulse Oximetry 98 92 96 Oxygen Delivery Method Room Air 12/20/22 05:40 12/20/22 05:45 12/20/22 05:50 Temperature Pulse Rate 159 H 162 H 153 H Respiratory Rate 28 H 20 25 H Blood Pressure Pulse Oximetry 96 97 96 Oxygen Delivery Method 12/20/22 05:55 12/20/22 06:00 12/20/22 06:03 Temperature Pulse Rate 158 H 159 H 162 H Respiratory Rate 31 H 30 H 25 H Blood Pressure Pulse Oximetry 96 96 Oxygen Delivery Method 12/20/22 06:03 12/20/22 06:05 12/20/22 06:05 Temperature Pulse Rate 162 H Respiratory Rate 14 Blood Pressure 95/69 83/59 L Pulse Oximetry 96 Oxygen Delivery Method 12/20/22 06:07 12/20/22 06:07 12/20/22 06:10 Temperature Pulse Rate 156 H Respiratory Rate 32 H Blood Pressure 124/78 99/55 L Pulse Oximetry 95 Oxygen Delivery Method 12/20/22 06:10 12/20/22 06:15 12/20/22 06:15 Temperature Pulse Rate 143 H 157 H Respiratory Rate 31 H 29 H Blood Pressure 108/58 L Pulse Oximetry 95 94 Oxygen Delivery Method Medical Decision Making Lab Data 12/20/22 05:40 12/20/22 05:40 Labs: Lab Results 12/20/22 12/20/22 12/20/22 Range/Units 05:40 05:40 05:40 WBC 9.5 (4.5-11.0) X10^3/uL RBC 4.80 (4.5-5.9) X10^6/uL Hgb 15.6 (13.5-17.5) g/dL Hct 45.7 (41-53) % MCV 95.2 (80-100) fL MCH 32.4 (26-34) PG MCHC 34.1 (30-36) % RDW 14.9 H (11.6-14.8) % Plt Count 292 (150-400) X10^3/uL Neut % (Auto) 57.7 (50-75) % Lymph % (Auto) 31.4 (25-40) % [place] % (Auto) 6.9 (3-14) % Eos % (Auto) 3.0 (2-4) % Baso % (Auto) 1.0 (0-2) % Neut # (Auto) 5500 (7202-4876) /uL Lymph # (Auto) 3000 (1363-1096) /uL [place] # (Auto) 700 (0-900) /uL Eos # (Auto) 300 (0-450) /uL Baso # (Auto) 100 (0-100) /uL PT 25.0 H (10.1-12.7) SECONDS INR 2.2 H (0.9-1.3) Sodium 138 (137-145) mmol/L Potassium 4.8 (3.4-5.1) mmol/L Chloride 107 (98-107) mmol/L Carbon Dioxide 21 L (22-32) mmol/L BUN 26 H (9-20) mg/dL Creatinine 1.25 (0.66-1.25) mg/dL Estimated GFR 58 L (>60) mL/min BUN/Creatinine Ratio 20.8 (6-22) Glucose 143 H (80-110) mg/dL Calcium 9.7 (8.4-10.2) mg/dL Magnesium (1.6-2.3) mg/dL Total Bilirubin 0.6 (0.2-1.3) mg/dL AST 42 (17-59) IU/L ALT 21 (<50) IU/L Alkaline Phosphatase 68 (38-126) U/L Total Creatine Kinase (55-170) U/L CK-MB (CK-2) (<2.37) ng/mL CK-MB (CK-2) Rel Index (1.5-5.0) % Troponin I (0.01-0.034) ng/mL Total Protein 8.4 H (6.3-8.2) g/dL Albumin 4.5 (3.5-5.0) g/dL Globulin 3.9 (1.7-4.1) g/dL Albumin/Globulin Ratio 1.2 (1.0-2.8) 12/20/22 12/20/22 Range/Units 05:40 05:40 WBC (4.5-11.0) X10^3/uL RBC (4.5-5.9) X10^6/uL Hgb (13.5-17.5) g/dL Hct (41-53) % MCV (80-100) fL MCH (26-34) PG MCHC (30-36) % RDW (11.6-14.8) % Plt Count (150-400) X10^3/uL Neut % (Auto) (50-75) % Lymph % (Auto) (25-40) % [place] % (Auto) (3-14) % Eos % (Auto) (2-4) % Baso % (Auto) (0-2) % Neut # (Auto) (4583-6549) /uL Lymph # (Auto) (8391-9005) /uL [place] # (Auto) (0-900) /uL Eos # (Auto) (0-450) /uL Baso # (Auto) (0-100) /uL PT (10.1-12.7) SECONDS INR (0.9-1.3) Sodium (137-145) mmol/L Potassium (3.4-5.1) mmol/L Chloride (98-107) mmol/L Carbon Dioxide (22-32) mmol/L BUN (9-20) mg/dL Creatinine (0.66-1.25) mg/dL Estimated GFR (>60) mL/min BUN/Creatinine Ratio (6-22) Glucose (80-110) mg/dL Calcium (8.4-10.2) mg/dL Magnesium 2.0 (1.6-2.3) mg/dL Total Bilirubin (0.2-1.3) mg/dL AST (17-59) IU/L ALT (<50) IU/L Alkaline Phosphatase (38-126) U/L Total Creatine Kinase 214 H (55-170) U/L CK-MB (CK-2) 3.44 H (<2.37) ng/mL CK-MB (CK-2) Rel Index 1.6 (1.5-5.0) % Troponin I 0.018 (0.01-0.034) ng/mL Total Protein (6.3-8.2) g/dL Albumin (3.5-5.0) g/dL Globulin (1.7-4.1) g/dL Albumin/Globulin Ratio (1.0-2.8) ECG Data Interpretation: [0551] EKG is rapid AFib rate [155 ] mild ST depressions in lateral leads MDM Narrative Medical decision making narrative: 82-year-old male with known history of AFib on anticoagulation presents with palpitations that started about 4:00 a.m. patient with rapid AFib and some lateral ST depressions is on Coumadin at appropriate for cardioversion. He is sedated with propofol and unfortunately cardioversion was unsuccessful at 120, 150, and finally 200 joules. Soon thereafter he was given a Cardizem push followed by a drip at 5 and developed subsequent hypotension. Drip was turned off and after about 30 minutes blood pressure came back up and was between the upper 90s and 110s. Discharge Plan Departure Patient Disposition: Admitted As Inpatient Clinical Impression: Atrial fibrillation with RVR Admit Date/Time: 12/20/22 06:17 Admit Provider: Dakotah Hamilton
[2022-12-20 05:58] LABS: INR 2.2 (0.9-1.3)
[2022-12-20 06:04] LABS: Add Manual Diff / Slide Review NO; Basophils Absolute Auto 100 /uL (0-100); Eosinophils Absolute Auto 300 /uL (0-450); Hematocrit 45.7 % (41-53); Hemoglobin 15.6 g/dL (13.5-17.5); Lymphocytes Absolute Auto 3000 /uL (1100-4500); Lymphocytes Percent Auto 31.4 % (25-40); Mean Corpuscular HGB Conc 34.1 % (30-36); Mean Corpuscular Hemoglobin 32.4 PG (26-34); Mean Corpuscular Volume 95.2 fL (80-100); Monocytes Absolute Auto 700 /uL (0-900); Monocytes Percent Auto 6.9 % (3-14); Neutrophils Absolute Auto 5500 /uL (1500-7000); Neutrophils Percent Auto 57.7 % (50-75); Platelet Count 292 X10^3/uL (150-400); Red Cell Distribution Width 14.9 % (11.6-14.8); White Blood Cell Count 9.5 X10^3/uL (4.5-11.0)
[2022-12-20 06:05] LABS: Alanine Aminotransferase 21 IU/L (<50); Albumin 4.5 g/dL (3.5-5.0); Albumin Globulin Ratio 1.2 (1.0-2.8); BUN Creatinine Ratio 20.8 (6-22); Bilirubin Total 0.6 mg/dL (0.2-1.3); Blood Urea Nitrogen 26 mg/dL (9-20); Calcium 9.7 mg/dL (8.4-10.2); Carbon Dioxide 21 mmol/L (22-32); Chloride 107 mmol/L (98-107); Estimated Glomerular Filt Rate 58 mL/min (>60); Globulin 3.9 g/dL (1.7-4.1); Glucose 143 mg/dL (80-110); Sodium 138 mmol/L (137-145); Total Protein 8.4 g/dL (6.3-8.2)
[2022-12-20 06:06] LABS: HEMOLYSIS 80 (0-50); Potassium 4.8 mmol/L (3.4-5.1)
[2022-12-20 06:07] LABS: Alkaline Phosphatase 68 U/L (38-126); Aspartate Aminotransferase 42 IU/L (17-59)
[2022-12-20] MEDS: propofoL 200 MG/20 ML VIAL IV (06:09)
--- NOTE | 2022-12-20 06:28 | P.HP_ITS ---
History of Present Illness History of Present Illness Date Patient Seen: 12/20/22 Time Patient Seen: 06:30 Chief complaint: AFIB Narrative: Mr. Zafar is an 82M with PMH paroxysmal fib on coumadin, htn, history of CVA who presents to the hospital with symptomatic tachycardia. He yesterday was feeling well and went out with friends and had a few alcoholic drinks which is unusual for him. He went home to bed. He woke up feeling palpitaions, shortness of breath, no chest pain. His heart rate at home was in the 150s. He previously had cardioversion a couple years ago. He has not missed any of his medications. He has not had fevers/chills. In the ED workup was done, vitals notable for afebrile, blood pressure 140s/70s, heart rate 150s, o2 sats 98%. Labs notable for WBC 9.5, hgb 15.6, plts 292. INR 2.2. Na 138, BUN 26, creatinine 1.25. EKG reviewed by me and notable for atrial fibrillation with rapid rate in the 150s, with ST depressions in lateral leads. He was ordered for propofol and subsequently cardioversion was attempted at 100J, 150J, 200J without success. He was then ordered for diltiazem push and drip, his blood pressure then dropped to the 70s. This may have been a combo of the diltiazem and propofol together. Diltiazem drip was stopped. IV fluids was ordered. His blood pressure improved to the 90s. [facility] Medical History Hypertension Surgical History Status post cataract extraction Social History household members: significant other Smoking Status: Never smoker Meds Home Medications and Allergies Home Medications Medication Instructions Recorded Confirmed Type aspirin 325 mg DAILY 10/10/18 10/10/18 History atorvastatin 20 mg DAILY 10/10/18 10/10/18 History metoprolol succinate 25 mg DAILY 10/10/18 10/10/18 History multivitamin 2 tab DAILY 10/10/18 10/10/18 History Allergies Allergy/AdvReac Type Severity Reaction Status Date / Time No Known Drug Allergies Allergy Verified 10/10/18 09:32 Review of Systems Review of Systems Narrative: 14 systems reviewed and negative aside from what is noted in HPI Exam Vital Signs (past 8 hours): - 12/20/22 05:30 Temperature 97.8 F Pulse Rate 158 H Respiratory Rate 22 Blood Pressure 141/72 H Pulse Oximetry 98 Oxygen Delivery Method Room Air Oxygen Delivery Method Room Air Narrative Exam Narrative: GEN: no acute distress HEENT: moist mucous membranes, PERRL NECK: trachea midline, PERRL CV: irregular, tachycardic PULM: clear bilaterally, no wheezes, rhonchi, rales ABD: soft, nontender, nondistended, no organomegaly EXT: warm and well perfused, with no edema NEURO: awake, alert, oriented, no focal deficits Objective Labs 12/20/22 05:40 12/20/22 05:40 Labs: Laboratory Results - last 24 hr 12/20/22 12/20/22 12/20/22 05:40 05:40 05:40 WBC 9.5 RBC 4.80 Hgb 15.6 Hct 45.7 MCV 95.2 MCH 32.4 MCHC 34.1 RDW 14.9 H Plt Count 292 Neut % (Auto) 57.7 Lymph % (Auto) 31.4 [place] % (Auto) 6.9 Eos % (Auto) 3.0 Baso % (Auto) 1.0 Neut # (Auto) 5500 Lymph # (Auto) 3000 [place] # (Auto) 700 Eos # (Auto) 300 Baso # (Auto) 100 Sodium 138 Potassium 4.8 Chloride 107 Carbon Dioxide 21 L BUN 26 H Creatinine 1.25 Estimated GFR 58 L BUN/Creatinine Ratio 20.8 Glucose 143 H Calcium 9.7 Magnesium 2.0 Total Bilirubin 0.6 AST 42 ALT 21 Alkaline Phosphatase 68 Total Protein 8.4 H Albumin 4.5 Globulin 3.9 Albumin/Globulin Ratio 1.2 Assessment & Plan Assessment & Plan narrative: 1. Atrial fibrillation with RVR -unclear precipitant, did have alcohol at dinner prior -unsuccessful cardioversion in the ED -plan to continue rate control with diltiazem drip, if hypotensive may need to switch to amiodarone -getting iv fluids after becoming hypotensive when dilt push started -ordered ECHO -ordered troponins for trending, initial trop 0.018 -ordered TSH -ordered chest xray which showed mild cardiomegaly 2. History of CVA -hold asa for now -continue statin I have discussed plan and obtained history from patient and family. I have discussed plan of care with ED physician and bedside nurse. I have reviewed labs and EKG. CODE: Full Proxy: Kaycee Tovar, life partner [facility] - Meds 'Current medications' to include all prescriptions, [id number] products, herbals, cannabis/cannabidiol products, and vitamin/mineral/dietary (nut ritional) supplements. I have utilized all available resources to obtain, update, or review the patient?s current medications. [If Yes, STOP here]: Yes
[2022-12-20] MEDS: dilTIAZem 5 MG/ML SDV 10 MG IV (06:30)
--- NOTE | 2022-12-20 06:33 | DI.RAD.S_ITS ---
PROCEDURE: XR CHEST 1V INDICATIONS: afib TECHNIQUE: One view of the chest was acquired. COMPARISON: [facility], , CHEST 1 VIEW, 11/19/2015, 0:46. FINDINGS: Surgical changes and devices: None. Lungs and pleura: Lungs are clear. No pleural effusions or pneumothorax. Mediastinum: Mediastinal contours appear normal. Heart size is normal. Bones and chest wall: No suspicious bony lesions. Overlying soft tissues appear unremarkable. IMPRESSION: No acute cardiopulmonary disease. Dictated by: Elaine Anguiano M.D. on 12/20/2022 at 8:07 Approved by: Elaine Anguiano M.D. on 12/20/2022 at 8:09
[2022-12-20] MEDS: DILTIAZEM 125 MG/125 ML PIGGYBACK IV (06:35)
[2022-12-20 06:51] LABS: Creatine Kinase 214 U/L (55-170)
[2022-12-20 07:04] LABS: Troponin I 0.018 ng/mL (0.01-0.034)
[2022-12-20 07:06] LABS: CKMB % Relative Index 1.6 % (1.5-5.0); Creatine Kinase MB 3.44 ng/mL (<2.37)
--- NOTE | 2022-12-20 07:16 | PC.NURSE ---
Pt awake and alert post sedation, BP have dropped, pt put in trendelenburg to assist in elevating BP, BP remains very soft at this time. attempted cardioversion, 3 shocks delivered and pt remains in a-fib, rvr. Pt requires O2 for short while during sedation, currently on RA.
[2022-12-20] MEDS: METOPROLOL TARTRATE 5 MG/5 ML INJ IV (07:33)
--- NOTE | 2022-12-20 08:09 | PC.NURSE ---
Received report on pt from JUSTIN Vizcaino. Pt resting in bed AAOx3 trendelenburg position for hypotension. Noted to be hypotensive in the 80's. HR 130's afib on warfarin. Pt had attempted defibrillation without success and appeared to stay hypotensive thereafter. Dr Bustillos in ED consulting. Metoprolol 5mg given IVP. HR decreased to 110's transiently and continues to be in the 120-130s. Pt asymptomatic. Pt remains in the ED and Dr Diaz aware of situation.
[2022-12-20 08:57] LABS: COVID19 -Nasal RAPID Negative (Negative)
[2022-12-20] MEDS: AMIODARONE 150 MG/100 ML PIGGYBACK 600 MG IV (09:42)
--- NOTE | 2022-12-20 09:59 | PC.NURSE ---
Addendum entered by Lu Suh R.N. 12/20/22 10:16: Dr Moncada made aware of BP 70's. Advised to continue with order for amio gtt. Original Note: Amiodarone 150mg bolus infused. Pt BP 77/50 and asymptomatic at this time. Page out to Dr Moncada. Holding continuous amio infusion at this time.
[2022-12-20] MEDS: AMIODARONE 360 MG/200 ML PIGGYBACK 33.33 MG IV (10:22)
--- NOTE | 2022-12-20 11:08 | DI.ECHO.S_ITS ---
[place] [facility]---------+ [facility] +---------+ : : [address] : : : : [id number] : : : : Phone: [phone]+ Echocardiogram Report + + :Name: AUGUSTINA KEMP Study Date: 12/20/2022 Height: 69 in : :[place] [employer] [facility] ReadingLocation: Weight: 194 lb: : Gender: Male BSA: 2.0 m2 : :: 1940 Age: 82 yrs BP: 94/70 mmHg: :Reason For Study: ATRIAL FIBRILLATION : :Ordering Physician: SHANNAN, : :RODRIGO KHOURY Performed By: Gayatri Cool : :Referring: RODRIGO CAMPBELL : + + Interpretation Summary Atrial fibrillation with rapid ventricular response with heart rate 114-120 bpm. Normal wall motion and LV systolic function. Ejection fraction is 60-65%. Severe biatrial enlargement. Moderately dilated right ventricle. Severe mitral annular calcification. Severe mitral stenosis with mean gradient of 11 mmHg and calculated aortic valve area of 1.7 manager pathology?. Moderate tricuspid regurgitation with estimated pulmonary artery systolic pressure of 46 mm Hg assuming RA pressure of 10 mm Hg. Compared to prior echocardiogram October 22, 2022, atrial fibrillation is newly described. Mean gradient across the mitral valve is up from 10 mmHg to 11 mmHg. Procedure: Images were not obtained from all of the standard acoustic windows due to the limited scope of the study. A two-dimensional transthoracic echocardiogram with color flow and Doppler was performed in limited views only to assess Left ventricular function and mitral valve. The study quality was technically adequate. Comparison is made with the echocardiogram of 10/22/2022. The patient was in atrial fibrillation with heart rates between 96-130 bpm during the exam. Left Ventricle: The left ventricle is normal in size and wall thickness. The ejection fraction is estimated to be 60-65%. Right Ventricle: The right ventricle is moderately dilated. Atria: The left atrium is severely dilated. The right atrium is severely dilated. Mitral Valve: The mitral valve leaflets are severely calcified. There is moderate to severe mitral annular calcification. There is moderate mitral stenosis. The mitral valve mean gradient is 11.5 mmHg. There is mild mitral regurgitation. Tricuspid Valve: Right ventricular systolic pressure is estimated to be 36 mmHg plus the clinically estimated CVP which cannot be estimated on this exam. MMode/2D Measurements & Calculations LVIDd: 3.5 cm LA A2 area: 39.6 cm2 LVIDs: 2.5 cm LA A4 area: 31.5 cm2 FS: 28.7 % LA length (vol): 7.1 cm IVSd: 0.82 cm LA vol: 149.3 ml LVPWd: 0.98 cm LA vol index: 73.2 ml/m2 LV morris. diameter/BSA (cm/m^2): 1.7 LV sys. diameter/BSA (cm/m^2): 1.2 RA long axis: 6.7 cm RVD1 (basal): 5.0 cm RA area: 29.8 cm2 RVD2 (mid): 4.2 cm RA vol: 113.7 ml TAPSE: 1.5 cm RA : 55.7 ml/m2 Doppler Measurements & Calculations TR max wesley: 301.0 cm/sec MV V2 mean: 161.7 cm/sec TR max P.2 mmHg MV mean P.5 mmHg PA V2 max: 80.1 cm/sec MV V2 VTI: 46.1 cm PA V2 mean: 56.1 cm/sec PA mean P.4 mmHg Electronically signed by: Nataly Andrea M.D. on Reading Physician:12/20/2022 04:52 PM
[2022-12-20] MEDS: ENOXAPARIN 40 MG/0.4 ML SYRINGE SUBCUT (11:42)
[2022-12-20 12:23] LABS: TSH w/ Reflex to FT4 1.36 uIU/mL (0.47-4.68)
[2022-12-20 12:25] LABS: Troponin I 0.688 ng/mL (0.01-0.034)
[2022-12-20] MEDS: AMIODARONE 360 MG/200 ML PIGGYBACK 16.7 MG IV (15:34)
[2022-12-20] MEDS: ESMOLOL 2.5 GM/250 ML IV.SOLN IV (18:17)
--- NOTE | 2022-12-20 18:33 | DI.US.S_ITS ---
PROCEDURE: US PERIPH VENOUS LOW EXTREM BI INDICATIONS: r/o DVT TECHNIQUE: Real-time imaging, as well as color and pulse Doppler interrogation, were performed of the deep veins of both legs from the inguinal ligament to the popliteal fossa. COMPARISON: None. FINDINGS: Right: The common femoral, femoral and popliteal veins are normally compressible, and free of intraluminal thrombus. Color and pulse Doppler demonstrate normal phasic intravascular flow. There is normal augmentation response to distal compression maneuver. Left: The common femoral, femoral and popliteal veins are normally compressible, and free of intraluminal thrombus. Color and pulse Doppler demonstrate normal phasic intravascular flow. There is normal augmentation response to distal compression maneuver. IMPRESSION: Negative for deep venous thrombosis of the bilateral lower extremity. Dictated by: Barrera Toth M.D. on 12/20/2022 at 19:24 Approved by: Barrera Toth M.D. on 12/20/2022 at 19:25
--- NOTE | 2022-12-20 18:37 | PC.NURSE ---
Pt arrive via gurney from ED, able to ambulate to bed, connected to monitoring equipment, Amiodarone gtt infusing as noted in emar, loading dose completed in ED. Pt oriented to room and call light system, family at bedside, admission completed, bed low and locked, call light within reach, will continue to monitor. [address] Moncada notified, Limited ECHO ordered 1828 New critical troponin of 1.14 Dr Moncada notified, pt transfer recommended, charge nurse working on transfer, tele client server developer Dr Gentile consulted. Esmolol gtt started per Dr Moncada, see emar for dosing. Pt updated on status and plan.
--- NOTE | 2022-12-20 18:45 | PM.PN.1 ---
Subjective Subjective Interval history: 82 year old male with prior mitral stenosis, admitted with afib with RVR. Low-normal BP this AM, started on amiodarone for additional rate control, which has been unsuccessful thus far. Ordered Limited TTE, and spoke with fund accountant ordnance truck installation mechanic, whom recommended aggressive rate control STAT with esmlolol infusion given patient's severe mitral stenosis, with concern for pulmonary edema very soon if rate control is not achieved. Troponin has also been uptrending, now up to 1.14. Discussed again with cardiology, recommended heparin infusion without bolus, hold coumadin, and transfer for possible ablation with PPM placement, left heart catheterization given troponin elevation. Exam Vital Signs (past 8 hours): - 12/20/22 10:47 12/20/22 10:52 12/20/22 10:55 Temperature 97.8 F Pulse Rate 126 H 127 H Respiratory Rate 27 H 19 Blood Pressure 120/79 120/79 Pulse Oximetry 98 89 L Oxygen Flow Rate 0 12/20/22 10:55 12/20/22 11:00 12/20/22 11:05 Temperature Pulse Rate 120 H 121 H 116 H Respiratory Rate 27 H 28 H 35 H Blood Pressure Pulse Oximetry 98 97 97 Oxygen Flow Rate 12/20/22 11:10 12/20/22 11:15 12/20/22 11:20 Temperature Pulse Rate 120 H 126 H 120 H Respiratory Rate 23 22 32 H Blood Pressure Pulse Oximetry 98 95 98 Oxygen Flow Rate 12/20/22 11:25 12/20/22 11:27 12/20/22 11:27 Temperature Pulse Rate 122 H 130 H Respiratory Rate 23 24 Blood Pressure 98/70 Pulse Oximetry 98 96 Oxygen Flow Rate 12/20/22 11:30 12/20/22 11:35 12/20/22 11:40 Temperature Pulse Rate 125 H 141 H 130 H Respiratory Rate 21 28 H 27 H Blood Pressure Pulse Oximetry 97 93 95 Oxygen Flow Rate 12/20/22 11:45 12/20/22 11:50 12/20/22 11:55 Temperature Pulse Rate 136 H 126 H 128 H Respiratory Rate 27 H 26 H 23 Blood Pressure Pulse Oximetry 95 96 97 Oxygen Flow Rate 12/20/22 11:58 12/20/22 11:58 12/20/22 12:00 Temperature Pulse Rate 120 H 126 H Respiratory Rate 23 26 H Blood Pressure 105/64 Pulse Oximetry 97 97 Oxygen Flow Rate 12/20/22 12:01 12/20/22 12:01 12/20/22 12:05 Temperature Pulse Rate 127 H 127 H Respiratory Rate 24 24 Blood Pressure 94/70 Pulse Oximetry 96 98 Oxygen Flow Rate 12/20/22 12:10 12/20/22 12:15 12/20/22 12:20 Temperature Pulse Rate 128 H 139 H 133 H Respiratory Rate 27 H 34 H 33 H Blood Pressure Pulse Oximetry 97 97 97 Oxygen Flow Rate 12/20/22 12:25 12/20/22 12:30 12/20/22 12:35 Temperature Pulse Rate 120 H 120 H 128 H Respiratory Rate 25 H 31 H 40 H Blood Pressure Pulse Oximetry 97 97 Oxygen Flow Rate 12/20/22 12:40 12/20/22 12:45 12/20/22 12:50 Temperature Pulse Rate 133 H 138 H 133 H Respiratory Rate 31 H 36 H 30 H Blood Pressure Pulse Oximetry 90 L Oxygen Flow Rate 12/20/22 12:55 12/20/22 13:00 12/20/22 13:01 Temperature Pulse Rate 128 H 116 H 116 H Respiratory Rate 25 H 35 H 32 H Blood Pressure Pulse Oximetry 97 98 97 Oxygen Flow Rate 12/20/22 13:01 12/20/22 13:05 12/20/22 13:10 Temperature Pulse Rate 116 H 119 H Respiratory Rate 22 21 Blood Pressure 95/56 L Pulse Oximetry 97 97 Oxygen Flow Rate 12/20/22 13:15 12/20/22 13:20 12/20/22 13:25 Temperature Pulse Rate 114 H 121 H 118 H Respiratory Rate 20 29 H 32 H Blood Pressure Pulse Oximetry 96 98 98 Oxygen Flow Rate 12/20/22 13:30 12/20/22 13:35 12/20/22 13:40 Temperature Pulse Rate 121 H 123 H 120 H Respiratory Rate 33 H 24 24 Blood Pressure Pulse Oximetry 99 98 100 Oxygen Flow Rate 12/20/22 13:45 12/20/22 13:50 12/20/22 13:55 Temperature Pulse Rate 122 H 122 H 123 H Respiratory Rate 25 H 23 24 Blood Pressure Pulse Oximetry 99 100 99 Oxygen Flow Rate 12/20/22 14:00 12/20/22 14:00 12/20/22 14:01 Temperature Pulse Rate 117 H 121 H Respiratory Rate 28 H 22 Blood Pressure 85/55 L Pulse Oximetry 94 95 Oxygen Flow Rate 12/20/22 14:01 12/20/22 14:05 12/20/22 14:10 Temperature Pulse Rate 118 H 113 H Respiratory Rate 21 24 Blood Pressure 84/62 L Pulse Oximetry 94 94 Oxygen Flow Rate 12/20/22 14:15 12/20/22 14:20 12/20/22 14:25 Temperature Pulse Rate 118 H 118 H 114 H Respiratory Rate 24 22 19 Blood Pressure Pulse Oximetry 96 94 94 Oxygen Flow Rate 12/20/22 14:30 12/20/22 14:35 12/20/22 14:40 Temperature Pulse Rate 113 H 120 H 119 H Respiratory Rate 17 24 22 Blood Pressure Pulse Oximetry 94 96 95 Oxygen Flow Rate 12/20/22 14:45 12/20/22 14:50 12/20/22 14:55 Temperature Pulse Rate 115 H 118 H 121 H Respiratory Rate 23 24 21 Blood Pressure Pulse Oximetry 96 96 96 Oxygen Flow Rate 12/20/22 15:00 12/20/22 15:00 12/20/22 15:05 Temperature Pulse Rate 114 H 114 H Respiratory Rate 21 25 H Blood Pressure 111/57 L Pulse Oximetry 96 95 Oxygen Flow Rate 12/20/22 15:10 12/20/22 15:15 12/20/22 16:00 Temperature 98.3 F Pulse Rate 117 H 119 H Respiratory Rate 22 24 Blood Pressure Pulse Oximetry 96 97 Oxygen Flow Rate 12/20/22 15:20 12/20/22 15:25 12/20/22 15:30 Temperature Pulse Rate 116 H 116 H 119 H Respiratory Rate 22 21 23 Blood Pressure Pulse Oximetry 96 97 97 Oxygen Flow Rate 12/20/22 15:35 12/20/22 15:40 12/20/22 15:45 Temperature Pulse Rate 121 H 117 H 117 H Respiratory Rate 21 25 H 23 Blood Pressure Pulse Oximetry 96 96 95 Oxygen Flow Rate 12/20/22 15:50 12/20/22 15:55 12/20/22 16:00 Temperature Pulse Rate 115 H 115 H Respiratory Rate 22 23 Blood Pressure 100/64 Pulse Oximetry 97 97 Oxygen Flow Rate 12/20/22 16:00 12/20/22 16:05 12/20/22 16:10 Temperature Pulse Rate 117 H 120 H 117 H Respiratory Rate 22 23 22 Blood Pressure Pulse Oximetry 96 97 97 Oxygen Flow Rate 12/20/22 16:15 12/20/22 16:20 12/20/22 16:25 Temperature Pulse Rate 117 H 119 H 119 H Respiratory Rate 22 24 24 Blood Pressure Pulse Oximetry 96 96 96 Oxygen Flow Rate 12/20/22 16:30 12/20/22 16:35 12/20/22 16:40 Temperature Pulse Rate 118 H 119 H 120 H Respiratory Rate 23 24 22 Blood Pressure Pulse Oximetry 97 97 96 Oxygen Flow Rate 12/20/22 16:45 12/20/22 16:50 12/20/22 16:55 Temperature Pulse Rate 123 H 125 H 122 H Respiratory Rate 42 H 29 H 28 H Blood Pressure Pulse Oximetry 94 95 97 Oxygen Flow Rate 12/20/22 17:00 12/20/22 17:04 12/20/22 17:04 Temperature Pulse Rate 124 H 124 H Respiratory Rate 27 H 27 H Blood Pressure 115/79 Pulse Oximetry 97 97 Oxygen Flow Rate 12/20/22 17:05 12/20/22 17:10 12/20/22 17:15 Temperature Pulse Rate 121 H 124 H 123 H Respiratory Rate 30 H 32 H 27 H Blood Pressure Pulse Oximetry 96 96 97 Oxygen Flow Rate 12/20/22 17:20 12/20/22 17:25 12/20/22 17:30 Temperature Pulse Rate 123 H 122 H 125 H Respiratory Rate 26 H 28 H 24 Blood Pressure Pulse Oximetry 96 97 97 Oxygen Flow Rate 12/20/22 17:35 12/20/22 17:40 12/20/22 17:45 Temperature Pulse Rate 122 H 120 H 125 H Respiratory Rate 22 29 H 26 H Blood Pressure Pulse Oximetry 97 96 96 Oxygen Flow Rate 12/20/22 17:50 12/20/22 17:55 Temperature Pulse Rate 125 H 134 H Respiratory Rate 32 H 26 H Blood Pressure Pulse Oximetry 96 96 Oxygen Flow Rate Oxygen Delivery Method Room Air Oxygen Flow Rate 0 Narrative Exam Narrative: GEN: no acute distress HEENT: moist mucous membranes, PERRL NECK: trachea midline, PERRL CV: irregular, tachycardic PULM: clear bilaterally, no wheezes, rhonchi, rales ABD: soft, nontender, nondistended, no organomegaly EXT: warm and well perfused, with no edema NEURO: awake, alert, oriented, no focal deficits Objective Labs 12/20/22 05:40 12/20/22 05:40 Labs: Laboratory Results - last 24 hr 12/20/22 12/20/22 12/20/22 05:40 05:40 05:40 WBC 9.5 RBC 4.80 Hgb 15.6 Hct 45.7 MCV 95.2 MCH 32.4 MCHC 34.1 RDW 14.9 H Plt Count 292 Neut % (Auto) 57.7 Lymph % (Auto) 31.4 [place] % (Auto) 6.9 Eos % (Auto) 3.0 Baso % (Auto) 1.0 Neut # (Auto) 5500 Lymph # (Auto) 3000 [place] # (Auto) 700 Eos # (Auto) 300 Baso # (Auto) 100 PT 25.0 H INR 2.2 H Sodium 138 Potassium 4.8 Chloride 107 Carbon Dioxide 21 L BUN 26 H Creatinine 1.25 Estimated GFR 58 L BUN/Creatinine Ratio 20.8 Glucose 143 H Calcium 9.7 Magnesium Total Bilirubin 0.6 AST 42 ALT 21 Alkaline Phosphatase 68 Total Creatine Kinase CK-MB (CK-2) CK-MB (CK-2) Rel Index Troponin I Total Protein 8.4 H Albumin 4.5 Globulin 3.9 Albumin/Globulin Ratio 1.2 TSH SARS-CoV-2 (PCR) 12/20/22 12/20/22 12/20/22 05:40 05:40 06:15 WBC RBC Hgb Hct MCV MCH MCHC RDW Plt Count Neut % (Auto) Lymph % (Auto) [place] % (Auto) Eos % (Auto) Baso % (Auto) Neut # (Auto) Lymph # (Auto) [place] # (Auto) Eos # (Auto) Baso # (Auto) PT INR Sodium Potassium Chloride Carbon Dioxide BUN Creatinine Estimated GFR BUN/Creatinine Ratio Glucose Calcium Magnesium 2.0 Total Bilirubin AST ALT Alkaline Phosphatase Total Creatine Kinase 214 H CK-MB (CK-2) 3.44 H CK-MB (CK-2) Rel Index 1.6 Troponin I 0.018 Total Protein Albumin Globulin Albumin/Globulin Ratio TSH SARS-CoV-2 (PCR) Negative 12/20/22 12/20/22 12/20/22 11:20 11:20 17:34 WBC RBC Hgb Hct MCV MCH MCHC RDW Plt Count Neut % (Auto) Lymph % (Auto) [place] % (Auto) Eos % (Auto) Baso % (Auto) Neut # (Auto) Lymph # (Auto) [place] # (Auto) Eos # (Auto) Baso # (Auto) PT INR Sodium Potassium Chloride Carbon Dioxide BUN Creatinine Estimated GFR BUN/Creatinine Ratio Glucose Calcium Magnesium Total Bilirubin AST ALT Alkaline Phosphatase Total Creatine Kinase CK-MB (CK-2) CK-MB (CK-2) Rel Index Troponin I 0.688 H* 1.140 H* Total Protein Albumin Globulin Albumin/Globulin Ratio TSH 1.36 SARS-CoV-2 (PCR) [facility] Medical History Hypertension Surgical History Status post cataract extraction Social History household members: significant other Smoking Status: Never smoker Assessment & Plan Assessment & Plan narrative: 1. Atrial fibrillation with RVR, severe mitral stenosis -likely valvular related due to underlying mitral stenosis -cardiology recommends esmolol infusion for immediate rate control to avoid pulmonary edema, continue amiodarone -limited TTE with normal EF, but severe mitral stenosis -tele-cake inspector consultation for assistance with rate control and in case of worsening respiratory status. 2. NSTEMI - trop rising to 1.140, cardiology recommending heparin infusion without bolus given coumadin with INR 2.2 this AM. Recommend transfer for [facility]. Holding coumadin. - continue tele - TTE as noted above, no wall motion abnormalities. 3. History of CVA -hold asa for now -continue statin I spent 65 minutes providing critical care management this patient. This excludes time spent in performing separately billed procedures. CODE: Full Proxy: Kaycee Guy, life partner
[2022-12-20] MEDS: HEPARIN DRIP 25,000 UNIT/500 ML IV.SOLN 21.12 UNIT IV (19:26)
[2022-12-20 19:50] LABS: PTT Partial Thromboplastin Tim 52 SECONDS (26-36)
[2022-12-20 19:51] LABS: BUN Creatinine Ratio 17.6 (6-22); Blood Urea Nitrogen 23 mg/dL (9-20); Calcium 8.9 mg/dL (8.4-10.2); Carbon Dioxide 21 mmol/L (22-32); Chloride 110 mmol/L (98-107); Estimated Glomerular Filt Rate 55 mL/min (>60); Glucose 141 mg/dL (80-110); HEMOLYSIS < 15 (0-50); Magnesium 1.9 mg/dL (1.6-2.3); Potassium 4.3 mmol/L (3.4-5.1); Sodium 139 mmol/L (137-145)
--- NOTE | 2022-12-20 20:07 | P.TELICUCN_ITS ---
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 Moncada [facility] Medical History Hypertension Surgical History Status post cataract extraction Social History household members: significant other Smoking Status: Never smoker Current Medications Current Medications Medications: Home Medications metoprolol succinate 25 mg DAILY 10/10/18 [History Confirmed 12/20/22] allopurinol 300 mg tablet 300 mg PO DAILY 12/20/22 [History Confirmed 12/20/22] colchicine 0.6 mg capsule 0.6 mg PO BID PRN Gout 12/20/22 [History Confirmed 12/20/22] cyclobenzaprine 10 mg tablet 10 mg PO DAILY 12/20/22 [History Confirmed 12/20/22] lisinopril 5 mg tablet 5 mg PO DAILY 12/20/22 [History Confirmed 12/20/22] pravastatin 40 mg tablet 40 mg PO DAILY 12/20/22 [History Confirmed 12/20/22] warfarin 2.5 mg tablet 2.5 mg PO DAILY 12/20/22 [History Confirmed 12/20/22] Visit Medications (administered) Generic Name Dose Route Start Last Admin Trade Name Freq PRN Reason Stop Dose Admin Enoxaparin Sodium 40 mg 12/20/22 10:53 12/20/22 11:42 Enoxaparin 40 Mg/0.4 Ml Syringe SUBCUT 40 mg DAILY EDGAR Administration Amiodarone HCl/Dextrose 360 mg in 200 mls @ 16.7 mls/hr 12/20/22 15:30 0403/08 15:34 Nexterone IV 01/20/23 21:30 16.7 mls/hr CONT EDGAR 16.7 mls/hr Administration Protocol Esmolol HCl 2.5 gm in 250 mls @ 26.4 mls/hr 12/20/22 18:15 12/20/22 18:17 Brevibloc IV 50 mcg/kg/min TITRATE EDGAR 26.4 mls/hr Administration Protocol 50 MCG/KG/MIN Heparin Sodium/Dextrose 25,000 unit in 500 mls @ 21.12 mls/hr 12/20/22 18:45 12/20/22 19:26 Heparin Drip IV 12 units/kg/hr CONT EDGAR 21.12 mls/hr Administration Protocol 12 UNITS/KG/HR Exam Vital Signs (past 8 hours): - 12/20/22 12:10 12/20/22 12:15 12/20/22 12:20 Temperature Pulse Rate 128 H 139 H 133 H Respiratory Rate 27 H 34 H 33 H Blood Pressure Pulse Oximetry 97 97 97 Oxygen Delivery Method 12/20/22 12:25 12/20/22 12:30 12/20/22 12:35 Temperature Pulse Rate 120 H 120 H 128 H Respiratory Rate 25 H 31 H 40 H Blood Pressure Pulse Oximetry 97 97 Oxygen Delivery Method 12/20/22 12:40 12/20/22 12:45 12/20/22 12:50 Temperature Pulse Rate 133 H 138 H 133 H Respiratory Rate 31 H 36 H 30 H Blood Pressure Pulse Oximetry 90 L Oxygen Delivery Method 12/20/22 12:55 12/20/22 13:00 12/20/22 13:01 Temperature Pulse Rate 128 H 116 H 116 H Respiratory Rate 25 H 35 H 32 H Blood Pressure Pulse Oximetry 97 98 97 Oxygen Delivery Method 12/20/22 13:01 12/20/22 13:05 12/20/22 13:10 Temperature Pulse Rate 116 H 119 H Respiratory Rate 22 21 Blood Pressure 95/56 L Pulse Oximetry 97 97 Oxygen Delivery Method 12/20/22 13:15 12/20/22 13:20 12/20/22 13:25 Temperature Pulse Rate 114 H 121 H 118 H Respiratory Rate 20 29 H 32 H Blood Pressure Pulse Oximetry 96 98 98 Oxygen Delivery Method 12/20/22 13:30 12/20/22 13:35 12/20/22 13:40 Temperature Pulse Rate 121 H 123 H 120 H Respiratory Rate 33 H 24 24 Blood Pressure Pulse Oximetry 99 98 100 Oxygen Delivery Method 12/20/22 13:45 12/20/22 13:50 12/20/22 13:55 Temperature Pulse Rate 122 H 122 H 123 H Respiratory Rate 25 H 23 24 Blood Pressure Pulse Oximetry 99 100 99 Oxygen Delivery Method 12/20/22 14:00 12/20/22 14:00 12/20/22 14:01 Temperature Pulse Rate 117 H 121 H Respiratory Rate 28 H 22 Blood Pressure 85/55 L Pulse Oximetry 94 95 Oxygen Delivery Method 12/20/22 14:01 12/20/22 14:05 12/20/22 14:10 Temperature Pulse Rate 118 H 113 H Respiratory Rate 21 24 Blood Pressure 84/62 L Pulse Oximetry 94 94 Oxygen Delivery Method 12/20/22 14:15 12/20/22 14:20 12/20/22 14:25 Temperature Pulse Rate 118 H 118 H 114 H Respiratory Rate 24 22 19 Blood Pressure Pulse Oximetry 96 94 94 Oxygen Delivery Method 12/20/22 14:30 12/20/22 14:35 12/20/22 14:40 Temperature Pulse Rate 113 H 120 H 119 H Respiratory Rate 17 24 22 Blood Pressure Pulse Oximetry 94 96 95 Oxygen Delivery Method 12/20/22 14:45 12/20/22 14:50 12/20/22 14:55 Temperature Pulse Rate 115 H 118 H 121 H Respiratory Rate 23 24 21 Blood Pressure Pulse Oximetry 96 96 96 Oxygen Delivery Method 12/20/22 15:00 12/20/22 15:00 12/20/22 15:05 Temperature Pulse Rate 114 H 114 H Respiratory Rate 21 25 H Blood Pressure 111/57 L Pulse Oximetry 96 95 Oxygen Delivery Method 12/20/22 15:10 12/20/22 15:15 12/20/22 16:00 Temperature 98.3 F Pulse Rate 117 H 119 H Respiratory Rate 22 24 Blood Pressure Pulse Oximetry 96 97 Oxygen Delivery Method 12/20/22 15:20 12/20/22 15:25 12/20/22 15:30 Temperature Pulse Rate 116 H 116 H 119 H Respiratory Rate 22 21 23 Blood Pressure Pulse Oximetry 96 97 97 Oxygen Delivery Method 12/20/22 15:35 12/20/22 15:40 12/20/22 15:45 Temperature Pulse Rate 121 H 117 H 117 H Respiratory Rate 21 25 H 23 Blood Pressure Pulse Oximetry 96 96 95 Oxygen Delivery Method 12/20/22 15:50 12/20/22 15:55 12/20/22 16:00 Temperature Pulse Rate 115 H 115 H Respiratory Rate 22 23 Blood Pressure 100/64 Pulse Oximetry 97 97 Oxygen Delivery Method 12/20/22 16:00 12/20/22 16:05 12/20/22 16:10 Temperature Pulse Rate 117 H 120 H 117 H Respiratory Rate 22 23 22 Blood Pressure Pulse Oximetry 96 97 97 Oxygen Delivery Method 12/20/22 16:15 12/20/22 16:20 12/20/22 16:25 Temperature Pulse Rate 117 H 119 H 119 H Respiratory Rate 22 24 24 Blood Pressure Pulse Oximetry 96 96 96 Oxygen Delivery Method 12/20/22 16:30 12/20/22 16:35 12/20/22 16:40 Temperature Pulse Rate 118 H 119 H 120 H Respiratory Rate 23 24 22 Blood Pressure Pulse Oximetry 97 97 96 Oxygen Delivery Method 12/20/22 16:45 12/20/22 16:50 12/20/22 16:55 Temperature Pulse Rate 123 H 125 H 122 H Respiratory Rate 42 H 29 H 28 H Blood Pressure Pulse Oximetry 94 95 97 Oxygen Delivery Method 12/20/22 17:00 12/20/22 17:04 12/20/22 17:04 Temperature Pulse Rate 124 H 124 H Respiratory Rate 27 H 27 H Blood Pressure 115/79 Pulse Oximetry 97 97 Oxygen Delivery Method 12/20/22 17:05 12/20/22 17:10 12/20/22 17:15 Temperature Pulse Rate 121 H 124 H 123 H Respiratory Rate 30 H 32 H 27 H Blood Pressure Pulse Oximetry 96 96 97 Oxygen Delivery Method 12/20/22 17:20 12/20/22 17:25 12/20/22 17:30 Temperature Pulse Rate 123 H 122 H 125 H Respiratory Rate 26 H 28 H 24 Blood Pressure Pulse Oximetry 96 97 97 Oxygen Delivery Method 12/20/22 17:35 12/20/22 17:40 12/20/22 17:45 Temperature Pulse Rate 122 H 120 H 125 H Respiratory Rate 22 29 H 26 H Blood Pressure Pulse Oximetry 97 96 96 Oxygen Delivery Method 12/20/22 17:50 12/20/22 17:55 12/20/22 18:00 Temperature Pulse Rate 125 H 134 H Respiratory Rate 32 H 26 H Blood Pressure 133/85 Pulse Oximetry 96 96 Oxygen Delivery Method 12/20/22 18:00 12/20/22 19:00 12/20/22 19:00 Temperature Pulse Rate 138 H 120 H Respiratory Rate 28 H 15 Blood Pressure 77/57 L Pulse Oximetry 89 L 96 Oxygen Delivery Method 12/20/22 19:04 12/20/22 19:04 12/20/22 19:59 Temperature Pulse Rate 110 H Respiratory Rate 22 Blood Pressure 96/72 Pulse Oximetry 96 Oxygen Delivery Method Room Air Oxygen Delivery Method Room Air Oxygen Flow Rate 0 Objective Labs 12/20/22 05:40 12/20/22 19:06 Labs: Laboratory Results - last 24 hr 12/20/22 12/20/22 12/20/22 05:40 05:40 05:40 WBC 9.5 RBC 4.80 Hgb 15.6 Hct 45.7 MCV 95.2 MCH 32.4 MCHC 34.1 RDW 14.9 H Plt Count 292 Neut % (Auto) 57.7 Lymph % (Auto) 31.4 [place] % (Auto) 6.9 Eos % (Auto) 3.0 Baso % (Auto) 1.0 Neut # (Auto) 5500 Lymph # (Auto) 3000 [place] # (Auto) 700 Eos # (Auto) 300 Baso # (Auto) 100 PT 25.0 H INR 2.2 H APTT Sodium 138 Potassium 4.8 Chloride 107 Carbon Dioxide 21 L BUN 26 H Creatinine 1.25 Estimated GFR 58 L BUN/Creatinine Ratio 20.8 Glucose 143 H Calcium 9.7 Magnesium Total Bilirubin 0.6 AST 42 ALT 21 Alkaline Phosphatase 68 Total Creatine Kinase CK-MB (CK-2) CK-MB (CK-2) Rel Index Troponin I Total Protein 8.4 H Albumin 4.5 Globulin 3.9 Albumin/Globulin Ratio 1.2 TSH SARS-CoV-2 (PCR) 12/20/22 12/20/22 12/20/22 05:40 05:40 06:15 WBC RBC Hgb Hct MCV MCH MCHC RDW Plt Count Neut % (Auto) Lymph % (Auto) [place] % (Auto) Eos % (Auto) Baso % (Auto) Neut # (Auto) Lymph # (Auto) [place] # (Auto) Eos # (Auto) Baso # (Auto) PT INR APTT Sodium Potassium Chloride Carbon Dioxide BUN Creatinine Estimated GFR BUN/Creatinine Ratio Glucose Calcium Magnesium 2.0 Total Bilirubin AST ALT Alkaline Phosphatase Total Creatine Kinase 214 H CK-MB (CK-2) 3.44 H CK-MB (CK-2) Rel Index 1.6 Troponin I 0.018 Total Protein Albumin Globulin Albumin/Globulin Ratio TSH SARS-CoV-2 (PCR) Negative 12/20/22 12/20/22 12/20/22 11:20 11:20 17:34 WBC RBC Hgb Hct MCV MCH MCHC RDW Plt Count Neut % (Auto) Lymph % (Auto) [place] % (Auto) Eos % (Auto) Baso % (Auto) Neut # (Auto) Lymph # (Auto) [place] # (Auto) Eos # (Auto) Baso # (Auto) PT INR APTT Sodium Potassium Chloride Carbon Dioxide BUN Creatinine Estimated GFR BUN/Creatinine Ratio Glucose Calcium Magnesium Total Bilirubin AST ALT Alkaline Phosphatase Total Creatine Kinase CK-MB (CK-2) CK-MB (CK-2) Rel Index Troponin I 0.688 H* 1.140 H* Total Protein Albumin Globulin Albumin/Globulin Ratio TSH 1.36 SARS-CoV-2 (PCR) 12/20/22 12/20/22 19:06 19:06 WBC RBC Hgb Hct MCV MCH MCHC RDW Plt Count Neut % (Auto) Lymph % (Auto) [place] % (Auto) Eos % (Auto) Baso % (Auto) Neut # (Auto) Lymph # (Auto) [place] # (Auto) Eos # (Auto) Baso # (Auto) PT INR APTT 52 H Sodium 139 Potassium 4.3 Chloride 110 H Carbon Dioxide 21 L BUN 23 H Creatinine 1.31 H Estimated GFR 55 L BUN/Creatinine Ratio 17.6 Glucose 141 H Calcium 8.9 Magnesium 1.9 Total Bilirubin AST ALT Alkaline Phosphatase Total Creatine Kinase CK-MB (CK-2) CK-MB (CK-2) Rel Index Troponin I Total Protein Albumin Globulin Albumin/Globulin Ratio TSH SARS-CoV-2 (PCR) Assessment & Plan Assessment & Plan narrative: patient seen, audio/visual contact establish chart/labs/imaging reviewed cased discussed with bedside nurse and provider Dr. Moncada 82 cary old male admitted to ICU for afib rvr, persistent NSTEMI Mitral Stenosis, severe SASKIA currently afebrile, HD stable, HR 110-130s afib trop 0.018 > 1.14 creat 1.3 cxr -ve ekg afib w/RVR suggest -Neurochecks/seizure precatuions -serial ekg/trop -echo done, ef60%, severe MR, see report for details -tx acs, asa/statin/hep drip -cardio eval, plan for cath, s/p mulitple conversions -continue amio/esmolol drips -keep map above 65 -check venous duplex, consider CTA to rule out PE however unlikely -check bmp -replace lytes, keep k 4.5, mag2.5 -check urine lytes -check renal sono -monitor ins/outs -glucose 140-180s -gi/dvt ppx -suggest transfer to a higher a level of care -disucssed at length with Dr. Ortiz, please call eICU if condition changes total ccm time 45 mins
[2022-12-20] MEDS: MAGNESIUM SULFATE 2 GM/50 ML PIGGYBACK IV (20:45)
[2022-12-20 21:28] LABS: MRSA (Nasal) PCR Not Detected (Not Detect)
--- NOTE | 2022-12-20 21:38 | PC.NURSE ---
Addendum entered by Radha Castillo R.N. 12/21/22 05:18: 0500- Patient has tolerated infusions well. Amiodarone off at 0330. Need to transfer to higher level of care for Left Heart Cath. Echo reveals severe Mitral Stenosis with preserved EF. E ICU consulting. Patient is aware of the plan. No distress at this time. Original Note: 2130- Lab here to draw next Triponin. Heparin gtt infusing per order, Esmolol gtt infusing per order, Amiodarone gtt infusing per order. BP is stable. Mag Trev infusing per order. Loud murmur noted on assessment. Room Air saturations 93-95%. No bed available to transfer to at this time. Will monitor closely.
[2022-12-20 22:14] LABS: Troponin I 0.965 ng/mL (0.01-0.034)
[2022-12-21] VITALS (56 sets, daily range): BP systolic 88–138; BP diastolic 59–97; PULSE 70–181; RESP 18–43; TEMP 36.7–37.1; O2SAT 94–99
[2022-12-21 01:13] LABS: Troponin I 0.855 ng/mL (0.01-0.034)
[2022-12-21] MEDS: ESMOLOL 2.5 GM/250 ML IV.SOLN IV ×2 (03:27→11:42)
[2022-12-21 05:52] LABS: BUN Creatinine Ratio 18.2 (6-22); Blood Urea Nitrogen 24 mg/dL (9-20); Calcium 8.9 mg/dL (8.4-10.2); Carbon Dioxide 19 mmol/L (22-32); Chloride 110 mmol/L (98-107); Estimated Glomerular Filt Rate 55 mL/min (>60); Glucose 112 mg/dL (80-110); HEMOLYSIS < 15 (0-50); Magnesium 2.4 mg/dL (1.6-2.3); Potassium 4.4 mmol/L (3.4-5.1); Sodium 140 mmol/L (137-145)
[2022-12-21 05:58] LABS: Add Manual Diff / Slide Review NO; Basophils Absolute Auto 100 /uL (0-100); Basophils Percent Auto 0.5 % (0-2); Eosinophils Absolute Auto 200 /uL (0-450); Eosinophils Percent Auto 2.2 % (2-4); Hematocrit 42.7 % (41-53); Hemoglobin 14.3 g/dL (13.5-17.5); Lymphocytes Absolute Auto 3100 /uL (1100-4500); Mean Corpuscular HGB Conc 33.4 % (30-36); Mean Corpuscular Volume 95.7 fL (80-100); Monocytes Absolute Auto 800 /uL (0-900); Monocytes Percent Auto 6.9 % (3-14); Neutrophils Absolute Auto 7000 /uL (1500-7000); Neutrophils Percent Auto 62.4 % (50-75); Platelet Count 269 X10^3/uL (150-400); Red Blood Cell Count 4.46 X10^6/uL (4.5-5.9); White Blood Cell Count 11.3 X10^3/uL (4.5-11.0)
[2022-12-21 06:06] LABS: Troponin I 0.705 ng/mL (0.01-0.034)
--- NOTE | 2022-12-21 07:52 | PC.NURSE ---
Addendum entered by Karo Crystal R.N. 12/21/22 12:57: 0900 lab notified this RN that PTT was greater than 150. Paused and then restarted according to protocol. Next lab draw for PTT at 1500. Original Note: Day shift: Lab reported patient's sample unreadable by their machine, stated the assumption is the result is greater than 150. Heparin drip paused at 0752. Lab redrawing patient.
[2022-12-21 09:09] LABS: PTT Partial Thromboplastin Tim > 150 SECONDS (26-36)
--- NOTE | 2022-12-21 09:55 | PM.PN.EICU ---
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 West Interval history: no acute events since admission no chest pain no sob Current Medications Current Medications Medications: Home Medications metoprolol succinate 25 mg DAILY 10/10/18 [History Confirmed 12/20/22] allopurinol 300 mg tablet 300 mg PO DAILY 12/20/22 [History Confirmed 12/20/22] colchicine 0.6 mg capsule 0.6 mg PO BID PRN Gout 12/20/22 [History Confirmed 12/20/22] cyclobenzaprine 10 mg tablet 10 mg PO DAILY 12/20/22 [History Confirmed 12/20/22] lisinopril 5 mg tablet 5 mg PO DAILY 12/20/22 [History Confirmed 12/20/22] pravastatin 40 mg tablet 40 mg PO DAILY 12/20/22 [History Confirmed 12/20/22] warfarin 2.5 mg tablet 2.5 mg PO DAILY 12/20/22 [History Confirmed 12/20/22] Visit Medications (administered) Generic Name Dose Route Start Last Admin Trade Name Freq PRN Reason Stop Dose Admin Amiodarone HCl/Dextrose 360 mg in 200 mls @ 16.7 mls/hr 12/20/22 15:30 12/21/22 03:26 Nexterone IV 01/20/23 21:30 0 mls/hr CONT EDGAR 0 mls/hr Titration Protocol Esmolol HCl 2.5 gm in 250 mls @ 26.4 mls/hr 12/20/22 18:15 12/21/22 03:27 Brevibloc IV 50 mcg/kg/min TITRATE EDGAR 26.4 mls/hr Administration Protocol 50 MCG/KG/MIN Heparin Sodium/Dextrose 25,000 unit in 500 mls @ 21.12 mls/hr 12/20/22 18:45 12/21/22 09:25 Heparin Drip IV 8.58 units/kg/hr CONT EDGAR 15.1 mls/hr Titration Protocol 12 UNITS/KG/HR Objective Labs 12/21/22 05:00 12/21/22 05:00 Labs: Laboratory Results - last 24 hr 12/20/22 12/20/22 12/20/22 10:55 11:20 11:20 WBC RBC Hgb Hct MCV MCH MCHC RDW Plt Count Neut % (Auto) Lymph % (Auto) [place] % (Auto) Eos % (Auto) Baso % (Auto) Neut # (Auto) Lymph # (Auto) [place] # (Auto) Eos # (Auto) Baso # (Auto) APTT Sodium Potassium Chloride Carbon Dioxide BUN Creatinine Estimated GFR BUN/Creatinine Ratio Glucose Calcium Magnesium Troponin I 0.688 H* TSH 1.36 Nasal Screen MRSA (PCR) Not detected 12/20/22 12/20/22 12/20/22 17:34 19:06 19:06 WBC RBC Hgb Hct MCV MCH MCHC RDW Plt Count Neut % (Auto) Lymph % (Auto) [place] % (Auto) Eos % (Auto) Baso % (Auto) Neut # (Auto) Lymph # (Auto) [place] # (Auto) Eos # (Auto) Baso # (Auto) APTT 52 H Sodium 139 Potassium 4.3 Chloride 110 H Carbon Dioxide 21 L BUN 23 H Creatinine 1.31 H Estimated GFR 55 L BUN/Creatinine Ratio 17.6 Glucose 141 H Calcium 8.9 Magnesium 1.9 Troponin I 1.140 H* TSH Nasal Screen MRSA (PCR) 12/20/22 12/20/22 12/21/22 19:06 21:33 00:30 WBC RBC Hgb Hct MCV MCH MCHC RDW Plt Count Neut % (Auto) Lymph % (Auto) [place] % (Auto) Eos % (Auto) Baso % (Auto) Neut # (Auto) Lymph # (Auto) [place] # (Auto) Eos # (Auto) Baso # (Auto) APTT Sodium Potassium Chloride Carbon Dioxide BUN Creatinine Estimated GFR BUN/Creatinine Ratio Glucose Calcium Magnesium Cancelled Troponin I 0.965 H* 0.855 H* TSH Nasal Screen MRSA (PCR) 12/21/22 12/21/22 12/21/22 05:00 05:00 05:00 WBC 11.3 H RBC 4.46 L Hgb 14.3 Hct 42.7 MCV 95.7 MCH 32.0 MCHC 33.4 RDW 15.0 H Plt Count 269 Neut % (Auto) 62.4 Lymph % (Auto) 28.0 [place] % (Auto) 6.9 Eos % (Auto) 2.2 Baso % (Auto) 0.5 Neut # (Auto) 7000 Lymph # (Auto) 3100 [place] # (Auto) 800 Eos # (Auto) 200 Baso # (Auto) 100 APTT > 150 H* D Sodium Potassium Chloride Carbon Dioxide BUN Creatinine Estimated GFR BUN/Creatinine Ratio Glucose Calcium Magnesium Troponin I 0.705 H* TSH Nasal Screen MRSA (PCR) 12/21/22 05:00 WBC RBC Hgb Hct MCV MCH MCHC RDW Plt Count Neut % (Auto) Lymph % (Auto) [place] % (Auto) Eos % (Auto) Baso % (Auto) Neut # (Auto) Lymph # (Auto) [place] # (Auto) Eos # (Auto) Baso # (Auto) APTT Sodium 140 Potassium 4.4 Chloride 110 H Carbon Dioxide 19 L BUN 24 H Creatinine 1.32 H Estimated GFR 55 L BUN/Creatinine Ratio 18.2 Glucose 112 H Calcium 8.9 Magnesium 2.4 H Troponin I TSH Nasal Screen MRSA (PCR) Exam Vital Signs (past 8 hours): - 12/21/22 02:00 12/21/22 02:01 12/21/22 02:01 Temperature Pulse Rate 106 H 100 H Respiratory Rate 22 21 Blood Pressure 108/60 Pulse Oximetry 95 95 Oxygen Delivery Method Oxygen Flow Rate 12/21/22 02:30 12/21/22 02:30 12/21/22 03:00 Temperature Pulse Rate 100 H 100 H Respiratory Rate 20 20 Blood Pressure 101/69 Pulse Oximetry 94 95 Oxygen Delivery Method Oxygen Flow Rate 12/21/22 03:01 12/21/22 03:01 12/21/22 03:00 Temperature 98.7 F Pulse Rate 103 H Respiratory Rate 20 Blood Pressure 98/77 Pulse Oximetry 95 Oxygen Delivery Method Room Air Oxygen Flow Rate 12/21/22 03:31 12/21/22 03:31 12/21/22 04:00 Temperature Pulse Rate 99 H 100 H Respiratory Rate 18 21 Blood Pressure 115/71 Pulse Oximetry 96 96 Oxygen Delivery Method Oxygen Flow Rate 12/21/22 04:05 12/21/22 04:05 12/21/22 04:31 Temperature Pulse Rate 108 H 118 H Respiratory Rate 22 22 Blood Pressure 105/71 Pulse Oximetry 96 96 Oxygen Delivery Method Oxygen Flow Rate 12/21/22 04:31 12/21/22 05:00 12/21/22 05:00 Temperature 98.5 F Pulse Rate 127 H Respiratory Rate 35 H Blood Pressure 92/70 103/65 Pulse Oximetry 97 Oxygen Delivery Method Oxygen Flow Rate 12/21/22 05:31 12/21/22 05:31 12/21/22 06:00 Temperature Pulse Rate 108 H 110 H Respiratory Rate 22 24 Blood Pressure 97/64 Pulse Oximetry 99 97 Oxygen Delivery Method Oxygen Flow Rate 12/21/22 06:04 12/21/22 06:04 12/21/22 08:08 Temperature 98.2 F Pulse Rate 109 H 72 Respiratory Rate 28 H 26 H Blood Pressure 99/70 97/63 Pulse Oximetry 96 95 Oxygen Delivery Method Oxygen Flow Rate 0 12/21/22 07:45 Temperature Pulse Rate Respiratory Rate Blood Pressure Pulse Oximetry Oxygen Delivery Method Room Air Oxygen Flow Rate Oxygen Delivery Method Room Air Oxygen Flow Rate 0 Assessment & Plan Assessment & Plan narrative: patient seen, audio/visual contact establish chart/labs/imaging reviewed cased discussed with bedside nurse and provider Dr. West 82 yeear old male admitted to ICU for afib rvr, persistent now rate controlled NSTEMI, trops decreasing Mitral Stenosis, severe SASKIA afebrile, HD stable, HR 70-80s trop 0.018 > 1.14> 0.7 creat 1.2 cxr -ve ekg afib w/RVR suggest -Neurochecks/seizure precatuions -off amio -can start bb and wean of esmolol -xfer if able for cath as per cardio -venous duplex -ve -asa/statin/hep drip -keep map above 65 -monitor ins/outs -replace lytes, keep k 4.5, mag2.5 -glucose 140-180s -gi/dvt ppx -please call eICU if condition changes d/w Dr. West total ccm time 45 mins
--- NOTE | 2022-12-21 12:46 | CM.DPNOTE ---
DCP Note According to conversation in multidisciplinary rounds - patient on the transfer list for heart ablation and pacemaker placement CM team will plan to follow along closely and can complete a full initial assessment of need if patient remains admitted at [facility]
[2022-12-21 15:47] LABS: PTT Partial Thromboplastin Tim 93 SECONDS (26-36)
[2022-12-21] MEDS: METOPROLOL IR 25 MG TABLET PO ×2 (18:38→23:45)
--- NOTE | 2022-12-21 20:13 | P.PN_ITS ---
Subjective Subjective Interval history: 82-year-old gentleman with paroxysmal atrial fibrillation on chronic warfarin anticoagulation, hypertension, prior stroke, admitted with AFib with RVR, progressive mitral stenosis, NSTEMI. Due to his poorly-controlled AFib, was transitioned from amiodarone to esmolol. His heart rate has been much better controlled overall. He reports he is feeling quite well. He denies any chest pain. No shortness of breath. No nausea or abdominal pain. He is anxious to be discharged home as his great-grandchildren arrived from out of state today and he is anxious to have a visit with them. He has not met 1 of the great grandchildren as the child was born only 6 months ago. Exam Vital Signs (past 8 hours): - 12/21/22 15:56 12/21/22 12:32 12/21/22 12:32 Pulse Rate 142 H Respiratory Rate 23 Blood Pressure 115/71 Pulse Oximetry 97 Oxygen Delivery Method Room Air 12/21/22 13:00 12/21/22 13:00 12/21/22 13:38 Pulse Rate 79 81 Respiratory Rate 22 27 H Blood Pressure 114/74 Pulse Oximetry 96 96 Oxygen Delivery Method 12/21/22 13:38 12/21/22 14:00 12/21/22 14:01 Pulse Rate 156 H 85 Respiratory Rate 25 H 22 Blood Pressure 116/72 Pulse Oximetry 95 97 Oxygen Delivery Method 12/21/22 14:01 12/21/22 14:30 12/21/22 14:30 Pulse Rate 85 Respiratory Rate 30 H Blood Pressure 118/76 131/64 Pulse Oximetry 98 Oxygen Delivery Method 12/21/22 15:00 12/21/22 15:00 12/21/22 15:30 Pulse Rate 80 82 Respiratory Rate 21 23 Blood Pressure 113/68 Pulse Oximetry 96 97 Oxygen Delivery Method 12/21/22 15:30 12/21/22 16:00 12/21/22 16:00 Pulse Rate 82 Respiratory Rate 21 Blood Pressure 109/65 114/62 Pulse Oximetry Oxygen Delivery Method 12/21/22 16:30 12/21/22 16:30 12/21/22 17:00 Pulse Rate 88 96 H Respiratory Rate 20 36 H Blood Pressure 108/62 Pulse Oximetry Oxygen Delivery Method 12/21/22 17:01 12/21/22 17:01 12/21/22 17:31 Pulse Rate 90 80 Respiratory Rate 43 H 27 H Blood Pressure 118/97 H Pulse Oximetry Oxygen Delivery Method 12/21/22 17:31 12/21/22 18:00 12/21/22 18:00 Pulse Rate 80 Respiratory Rate 20 Blood Pressure 130/77 122/75 Pulse Oximetry 95 Oxygen Delivery Method 12/21/22 18:30 12/21/22 18:30 12/21/22 19:00 Pulse Rate 82 80 Respiratory Rate 22 22 Blood Pressure 130/75 Pulse Oximetry 97 96 Oxygen Delivery Method 12/21/22 19:01 12/21/22 19:01 12/21/22 19:30 Pulse Rate 81 Respiratory Rate 21 Blood Pressure 138/77 133/76 Pulse Oximetry 96 Oxygen Delivery Method 12/21/22 19:30 Pulse Rate 77 Respiratory Rate 19 Blood Pressure Pulse Oximetry 97 Oxygen Delivery Method Oxygen Delivery Method Room Air Oxygen Flow Rate 0 Narrative Exam Narrative: GEN: Very pleasant elderly male, Alert and oriented x 3, NAD HEENT:NC, Face symmetric CHEST: Respiratory excursions symmetric, CTAB CV: RRR, no M/R/G ABD: Soft, NT/ND, BT present in all 4 quadrants, no organomegaly or masses EXTR: warm, well perfused, no C/C/E SKIN: warm and dry, no rash NEURO: Alert and oriented x 3, nonfocal Objective Labs 12/21/22 05:00 12/21/22 05:00 Labs: Laboratory Results - last 24 hr 12/20/22 12/20/22 12/20/22 10:55 19:06 21:33 WBC RBC Hgb Hct MCV MCH MCHC RDW Plt Count Neut % (Auto) Lymph % (Auto) [place] % (Auto) Eos % (Auto) Baso % (Auto) Neut # (Auto) Lymph # (Auto) [place] # (Auto) Eos # (Auto) Baso # (Auto) APTT Sodium Potassium Chloride Carbon Dioxide BUN Creatinine Estimated GFR BUN/Creatinine Ratio Glucose Calcium Magnesium Cancelled Troponin I 0.965 H* Nasal Screen MRSA (PCR) Not detected 12/21/22 12/21/22 12/21/22 00:30 05:00 05:00 WBC RBC Hgb Hct MCV MCH MCHC RDW Plt Count Neut % (Auto) Lymph % (Auto) [place] % (Auto) Eos % (Auto) Baso % (Auto) Neut # (Auto) Lymph # (Auto) [place] # (Auto) Eos # (Auto) Baso # (Auto) APTT > 150 H* D Sodium Potassium Chloride Carbon Dioxide BUN Creatinine Estimated GFR BUN/Creatinine Ratio Glucose Calcium Magnesium Troponin I 0.855 H* 0.705 H* Nasal Screen MRSA (PCR) 12/21/22 12/21/22 12/21/22 05:00 05:00 15:06 WBC 11.3 H RBC 4.46 L Hgb 14.3 Hct 42.7 MCV 95.7 MCH 32.0 MCHC 33.4 RDW 15.0 H Plt Count 269 Neut % (Auto) 62.4 Lymph % (Auto) 28.0 [place] % (Auto) 6.9 Eos % (Auto) 2.2 Baso % (Auto) 0.5 Neut # (Auto) 7000 Lymph # (Auto) 3100 [place] # (Auto) 800 Eos # (Auto) 200 Baso # (Auto) 100 APTT 93 H* D Sodium 140 Potassium 4.4 Chloride 110 H Carbon Dioxide 19 L BUN 24 H Creatinine 1.32 H Estimated GFR 55 L BUN/Creatinine Ratio 18.2 Glucose 112 H Calcium 8.9 Magnesium 2.4 H Troponin I Nasal Screen MRSA (PCR) [facility] Medical History Hypertension Surgical History Status post cataract extraction Social History household members: significant other Smoking Status: Never smoker Assessment & Plan Assessment & Plan narrative: 1. AFib with RVR in the setting of severe mitral stenosis Significantly improved rate control with the addition of esmolol. I discussed the case with Dr. Gomez who recommends transitioning to oral metoprolol. He recommends initial dose of 25 mg q.6 hours and weaning off of the esmolol drip. Will likely be able to take treat the metoprolol up tomorrow. Warfarin has been held in the setting of heparin infusion. Heparin infusion was held earlier this morning due to a significantly elevated PTT. Was restarted after that per protocol. 2. NSTEMI Troponin peaked at 1.14 yesterday. It is down to 0.705 today. Remains on heparin infusion. Await further recommendations per Cardiology. Recommendation had been for transfer to a higher level of care for heart catheterization, but per my conversation with Dr. Gomez today, that may be able to be done on an outpatient basis. 3. History of stroke Holding aspirin therapy for now. Continue statin. 4. Elevated creatinine Creatinine mildly bumped to 1.32 today. Will continue to monitor. 5. Gout On allopurinol daily and as needed colchicine. Code status Full Prophylaxis On heparin drip Disposition Pending
--- NOTE | 2022-12-21 20:18 | PM.ICURNDS ---
- Date Patient Seen: 12/21/22 Time Patient Seen: 20:18 :: This patient was seen via real time interactive two-way audiovisual telecommunication. Note: No acute issues during the day. Started on metoprolol and esmolol down to 20 mcg. Cont titrating down esmolol to maintain goal HR < 110. Subjectively patient reports no complaints. Denies chest pain, N/V, fever/chills, or shortness of breath. D/w RN and patient at bedside.
[2022-12-21] MEDS: ATORVASTATIN 20 MG TABLET 40 MG PO (21:05)
[2022-12-21 23:02] LABS: PTT Partial Thromboplastin Tim 69 SECONDS (26-36)
[2022-12-22] VITALS (13 sets, daily range): BP systolic 121–143; BP diastolic 70–84; PULSE 69–88; RESP 15–35; TEMP 36.4–36.6; O2SAT 94–98
[2022-12-22] MEDS: HEPARIN DRIP 25,000 UNIT/500 ML IV.SOLN 13.1 UNIT IV (01:43)
[2022-12-22 05:07] LABS: PTT Partial Thromboplastin Tim 65 SECONDS (26-36)
--- NOTE | 2022-12-22 05:14 | PC.NURSE ---
Weaning esmolol drip slowly, finally off at 2300. No change noted in blood pressure or heart rate. Pt. stating that [place], but able to state, month and year without a problem. Reoriented slowly and tubes and cords explained.
[2022-12-22 05:17] LABS: BUN Creatinine Ratio 16.8 (6-22); Blood Urea Nitrogen 21 mg/dL (9-20); Calcium 8.8 mg/dL (8.4-10.2); Carbon Dioxide 24 mmol/L (22-32); Chloride 108 mmol/L (98-107); Estimated Glomerular Filt Rate 58 mL/min (>60); Glucose 105 mg/dL (80-110); HEMOLYSIS < 15 (0-50); Potassium 4.3 mmol/L (3.4-5.1); Sodium 137 mmol/L (137-145)
[2022-12-22 05:26] LABS: Add Manual Diff / Slide Review NO; Basophils Absolute Auto 100 /uL (0-100); Basophils Percent Auto 1.8 % (0-2); Eosinophils Absolute Auto 500 /uL (0-450); Eosinophils Percent Auto 5.9 % (2-4); Hematocrit 38.8 % (41-53); Hemoglobin 13.3 g/dL (13.5-17.5); Lymphocytes Absolute Auto 1700 /uL (1100-4500); Lymphocytes Percent Auto 20.6 % (25-40); Mean Corpuscular HGB Conc 34.2 % (30-36); Mean Corpuscular Hemoglobin 32.4 PG (26-34); Mean Corpuscular Volume 94.8 fL (80-100); Monocytes Absolute Auto 200 /uL (0-900); Monocytes Percent Auto 2.7 % (3-14); Neutrophils Absolute Auto 5500 /uL (1500-7000); Platelet Count 234 X10^3/uL (150-400); Red Blood Cell Count 4.09 X10^6/uL (4.5-5.9); Red Cell Distribution Width 14.9 % (11.6-14.8)
[2022-12-22] MEDS: METOPROLOL IR 25 MG TABLET PO (05:29)
[2022-12-22] MEDS: METOPROLOL ER 50 MG TABLET 100 MG PO (09:36)
[2022-12-22] MEDS: AMIODARONE 200 MG TABLET PO (09:37)
[2022-12-22] MEDS: ASPIRIN EC 81 MG TABLET PO (09:37)
--- NOTE | 2022-12-22 13:53 | PC.NURSE ---
Discharge: Pt education provided. IV discontinued, tele removed. Pt belongings given to patient. Instructions provided on calling to schedule follow up Saturday for cardiology. Patient wheeled via wheelchair by PCT to private vehicle with significant other at 1346.
--- NOTE | 2022-12-28 14:46 | PM.DS.1 ---
History of Present Illness History of Present Illness Chief complaint: AFIB Narrative: Per H&P: Mr. Zafar is an 82M with PMH paroxysmal fib on coumadin, htn, history of CVA who presents to the hospital with symptomatic tachycardia. He yesterday was feeling well and went out with friends and had a few alcoholic drinks which is unusual for him. He went home to bed. He woke up feeling palpitaions, shortness of breath, no chest pain. His heart rate at home was in the 150s. He previously had cardioversion a couple years ago. He has not missed any of his medications. He has not had fevers/chills. In the ED workup was done, vitals notable for afebrile, blood pressure 140s/70s, heart rate 150s, o2 sats 98%. Labs notable for WBC 9.5, hgb 15.6, plts 292. INR 2.2. Na 138, BUN 26, creatinine 1.25. EKG reviewed by me and notable for atrial fibrillation with rapid rate in the 150s, with ST depressions in lateral leads. He was ordered for propofol and subsequently cardioversion was attempted at 100J, 150J, 200J without success. He was then ordered for diltiazem push and drip, his blood pressure then dropped to the 70s. This may have been a combo of the diltiazem and propofol together. Diltiazem drip was stopped. IV fluids was ordered. His blood pressure improved to the 90s. Discharge Providers Provider Date of admission: 12/20/22 06:17 Discharge Date: 12/22/22 Primary care physician: Wendy Sales MD Consults: 12/20/22 18:28 Consult to [facility] Routine Comment: Consulting Provider: [facility] [employer] Reason for consultation: [employer] Discharge provider: Nedra West MD Summary Hospital Course Discharge Diagnosis: 1. AFib with RVR in the setting of severe mitral stenosis, now rate controlled 2. NSTEMI- plan for outpt heart cath per Dr. Leon, Cardiology 3. History of stroke 4. Elevated creatinine - minimally elevated (not consistent w/[place]) - now back to baseline 5. Gout Hospital Course: Pt was admitted w/ A fib w/RVR and NSTEMI. Echo showed severe mitral valve stenosis. Initial recommendation per Cardiology internal salesperson for [facility] was to transfer to [facility] for consideration of ablation/pacemaker/heart cath. Pt achieved excellent rate control w/esmolol. Was transitioned to metoprolol w/good effect. Dr. Leon, Cardiology, advised pt could be d/c'd home (per pt's request) as he was asymptomatic and rate controlled and have outpt f/u w/cardiology in the next week or so. Dr. Leon agreed to facilitate close f/u. Pt was d/c'd in stable condition. Time Spent with Patient Time spent: Greater than 30 minutes Exam Vital Signs (past 8 hours): Oxygen Delivery Method Room Air Oxygen Flow Rate 0 Narrative Exam Narrative: GEN:? Very pleasant elderly male, Alert and oriented x 3, NAD HEENT:NC, Face symmetric CHEST: Respiratory excursions symmetric, CTAB CV: RRR, no M/R/G ABD: Soft, NT/ND, BT present in all 4 quadrants, no organomegaly or masses EXTR: warm, well perfused, no C/C/E SKIN: warm and dry, no rash NEURO: Alert and oriented x 3, nonfocal Objective Labs 12/22/22 04:37 12/22/22 04:37 [facility] Medical History Hypertension Surgical History Status post cataract extraction Social History household members: significant other Smoking Status: Never smoker Discharge Plan Discharge Plan Patient Disposition: Home Provider Discharge Comment: You should receive a call from [facility] on Saturday12/24/22. If you do not hear from them by midday, please call and explain that you are to be seen this week per Dr. Leon. Monitor your heart rate. Return to the ED for sustained heart rate above 120. It is okay for it to go up with activity but it should come down within 5-10 minutes of resting. Return to the ED for chest pain/tightness/pressure, increasing leg edema or abdominal swelling, or inability to hold down food or fluids. Restart your warfarin today. You should have a follow-up PT/INR next week. Discharge orders & Medications Prescriptions: New amiodarone 200 mg Tablet 200 mg PO DAILY Qty: 30 0RF aspirin 81 mg Tablet,Delayed Release (Dr/Ec) 81 mg PO DAILY Qty: 30 0RF atorvastatin [Lipitor] 20 mg Tablet 40 mg PO BEDTIME Qty: 30 0RF metoprolol succinate 50 mg Tablet Extended Release 24 Hr 50 mg PO BEDTIME Qty: 30 0RF metoprolol succinate 50 mg Tablet Extended Release 24 Hr 100 mg PO DAILY Qty: 30 0RF Continued cyclobenzaprine 10 mg tablet 10 mg PO DAILY warfarin 2.5 mg tablet 2.5 mg PO DAILY allopurinol 300 mg tablet 300 mg PO DAILY lisinopril 5 mg tablet 5 mg PO DAILY colchicine 0.6 mg Capsule 0.6 mg PO BID PRN (Reason: Gout) Discontinued pravastatin 40 mg tablet 40 mg PO DAILY metoprolol succinate 25 mg 25 mg DAILY Follow up/Referrals: Wendy Sales MD [Primary Care Provider] - Diet/Activity/Treatments Diet: Diet as Tolerated Diet comment: Heart Healthy Activity: As tolerated Oxygen: N/A Visit Report/Discharge Packet Instructions: DI for Atrial Fibrillation, Amiodarone Stand Alone Forms: Congestive Heart Failure, Patient Portal/API, Stroke Signs & Symptoms Discharge Data Primary Care Provider: Wendy Sales Discharges patient from system. Discharge Date/Time: 12/22/22 13:46
== END 2022-12-22 13:46 | disposition home or self-care (01) | DRG 282 ==
LOC: ED 05:31 → AC 06:18 → ICU 10:15
PROVIDERS: Family Medicine; Internal Medicine; Internal Medicine Critical Care Medicine; Internal Medicine Pulmonary Disease; Admitting Provider Internal Medicine; Emergency Provider Emergency Medicine; PCP Internal Medicine; Referring Provider Emergency Medicine; Visit Provider Internal Medicine
DX: I48.0 Paroxysmal atrial fibrillation (principal); I21.4 Non-ST elevation (NSTEMI) myocardial infarction; I05.0 Rheumatic mitral stenosis; M10.9 Gout, unspecified; I10 Essential (primary) hypertension; Z86.73 Personal history of transient ischemic attack (TIA), and cerebral infarction without residual deficits; Z79.01 Long term (current) use of anticoagulants; Z20.822 Contact with and (suspected) exposure to COVID-19
CPT/HCPCS: 36415; 71045; 80048; 80053; 82550; 82553; 83735; 84443; 84484; 85025; 85610; 85730; 87635; 87797; 92960; 93005; 93307; 93970; 96374; 96375; 99152; 99285; 99291; C9803; J0282; J1644; J1650; J2704; J3475